=== PATIENT | male | born 1945 | race Caucasian/White ===

== ENCOUNTER 2019-09-25 15:00 | Outpatient (CLI) | payer MEDICARE, OTHER, SELFPAY ==
--- NOTE | ~2019-09-25 | US_ITS ---
EXAMINATION:US venous doppler LE RT INDICATION:Localized leg edema. TECHNIQUE: Multiple grayscale, color flow and Doppler images of the right lower extremity deep venous systems were obtained and reviewed. COMPARISON:01/28/2017 FINDINGS: The common femoral, superficial femoral and popliteal veins demonstrate normal respiratory variation, augmentation and compressibility. Color flow is also seen within the posterior tibial, pe roneal, greater saphenous and profunda veins. IMPRESSION: 1: No lower extremity deep venous thrombosis. Reviewed, dictated and finalized at location A.
== END 2019-09-25 15:01 | disposition home or self-care (01) ==
PROVIDERS: PCP Family Medicine; Visit Provider Physician Assistant
DX: R60.0 Localized edema (principal)
CPT/HCPCS: 93971

== ENCOUNTER 2021-12-19 00:15 | Day surgery (SDC) | payer MEDICARE, OTHER, SELFPAY ==
[2021-11-20 14:46] VITALS: BMI 26.9
--- NOTE | 2021-12-19 07:36 | WPDANESEPPF ---
Anes - Initial Pre Proc Eval Procedure: Operation Date: 12/19/21 12:30 Proposed Procedures p Screening Colonoscopy - Lb Anderson MD Date/Time: 12/19/21 07:36 Surgeon: Lb Anderson MD Pre Op Diagnosis: family hx of colon polyps Patient Data Age: 76 Gender: M Height: 1.91 m Weight: 97.5 kg Allergies Allergy/AdvReac Type Severity Reaction Status Date / Time hydrocodone AdvReac Intermediate EXTREME Verified 12/19/21 11:03 CONFUSION Home Medications Medication Instructions Recorded Confirmed Type aspirin 81 mg tablet,delayed 81 mg PO DAILY 06/04/19 11/20/21 History release multivitamin 1 tablet PO DAILY 09/23/19 11/20/21 History simvastatin 10 mg tablet 10 mg PO DAILY #90 tabs 07/03/21 11/20/21 Rx losartan 25 mg tablet See Rx Instructions .Route 09/26/21 11/20/21 Rx .COMPLEX #90 tabs Patient hx anesthesia problems: none Family hx anesthesia problems: none Results Review: All pre-operative results and documents have been reviewed as part of the pre-operative evaluation. [facility] Past Medical History Medical History (Updated 12/19/21 @ 07:38 by Wilbur Alberts MD) BPH (benign prostatic hyperplasia) DVT (deep venous thrombosis) Essential (primary) hypertension Obstructive sleep apnea (adult) (pediatric) Pure hypercholesterolemia Surgical History Surgical History H/O arthroscopy of knee H/O arthroscopy of shoulder H/O colonoscopy H/O hernia repair History of hip replacement Family History Family History Mother Hypertension Family history of elevated blood lipids Cerebrovascular accident Family history of coronary artery disease Father Family history of emphysema Social History Social History Smoking status: Never smoker Alcohol intake: current Substance use type: does not use Living arrangements: alone Spiritual care concerns: No Anes - Eval Final PreProcedure Day of Procedure 12/19/21 07:36 Patient weight: overweight Heart: regular rate and rhythm Lungs: clear to auscultation and normal air movement Airway: Mallampati scale class II Neurological: alert and oriented Last oral intake: >/= 8 hours ASA classification: II Emergent: no Anesthetic plan: proceed Anesthesia type and monitoring: general GIVS Results Review: All pre-operative results and documents have been reviewed as part of the pre-operative evaluation. Informed Consent: The patient's anesthetic plan and its attendant risks and benefits were discussed with the patient/family/POA. Questions were solicited and answers provided to the satisfaction of the patient/family/POA.
[2021-12-19 11:04] VITALS: BP 153/74; PULSE 55; RESP 18; TEMP 36.4; O2SAT 100
[2021-12-19] MEDS: LACTATED RINGERS 1,000 ML 150 ML IV CONT (11:08)
--- NOTE | 2021-12-19 11:30 | PM.IMHP ---
H&P: HPI History of Present Illness Date/Time: 12/19/21 11:30 Chief Complaint: Neoplasia screening. Narrative: This is a 76-year-old white male patient presents for neoplasia screening. Patient reports that his current weight appetite and bowel movements are normal. He denies abdominal pain. He has had no bleeding. Family history is significant that his brother has had colon polyps. For this reason patient has had intermittent screening colonoscopies. Most recent exam 6 or 7 years ago was unremarkable. Patient presents today for screening exam. Review of Systems Review of Systems: Review of systems noncontributory. [facility] Past Medical History Medical History (Updated 12/19/21 @ 11:32 by Lb Anderson MD) BPH (benign prostatic hyperplasia) DVT (deep venous thrombosis) Essential (primary) hypertension Obstructive sleep apnea (adult) (pediatric) Pure hypercholesterolemia Surgical History Surgical History (Reviewed 10/10/21 @ 09:35 by Kirstin Ramos [facility]) H/O arthroscopy of knee H/O arthroscopy of shoulder H/O colonoscopy H/O hernia repair History of hip replacement Family History Family History (Reviewed 10/10/21 @ 09:35 by Kirstin Ramos [facility]) Mother Hypertension Family history of elevated blood lipids Cerebrovascular accident Family history of coronary artery disease Father Family history of emphysema Social History Social History (Reviewed 10/10/21 @ 09:35 by Kirstin Ramos [facility]) Smoking status: Never smoker Alcohol intake: current Substance use type: does not use Living arrangements: alone Spiritual care concerns: No Meds Home Medications and Allergies Home Medications Medication Instructions Recorded Confirmed Type aspirin 81 mg tablet,delayed 81 mg PO DAILY 06/04/19 11/20/21 History release multivitamin 1 tablet PO DAILY 09/23/19 11/20/21 History simvastatin 10 mg tablet 10 mg PO DAILY #90 tabs 07/03/21 11/20/21 Rx losartan 25 mg tablet See Rx Instructions .Route 09/26/21 11/20/21 Rx .COMPLEX #90 tabs Allergies Allergy/AdvReac Type Severity Reaction Status Date / Time hydrocodone AdvReac Intermediate EXTREME Verified 12/19/21 11:03 CONFUSION Vital Signs Vital Signs - 24 hr 12/19/21 11:04 Temperature 97.5 F L Pulse Rate 55 L Respiratory Rate 18 Blood Pressure 153/74 H Pulse Oximetry 100 Oxygen Delivery Room Air Exam Narrative: Physical exam reveals patient be alert. Vital signs stable. HEENT exam is unremarkable. Patient is anicteric. Lungs are clear to auscultation and percussion. Heart is without murmur or extra sounds. Abdominal exam bowel sounds are present soft nontender with no hepatosplenomegaly. Digital external rectal exam is normal. Assessment and Plan Assessment and plan (1) Family history of colonic polyps: Code(s): Z83.71 - Family history of colonic polyps Status: Acute Assessment and Plan: Patient has a family history of colon polyps in his brother. For this reason surveillance colonoscopy suggested now and at intervals in the future.
[2021-12-19 12:23] VITALS: BP 131/71; PULSE 64; RESP 19; O2SAT 100
[2021-12-19 12:33] VITALS: BP 122/67; PULSE 53; RESP 24; O2SAT 100
[2021-12-19 12:43] VITALS: BP 129/68; PULSE 48; RESP 14; O2SAT 100
== END 2021-12-19 12:50 | disposition home or self-care (01) ==
PROVIDERS: PCP Family Medicine; Visit Provider Internal Medicine Gastroenterology
PROC: 0DJD8ZZ Inspection of Lower Intestinal Tract, Via Natural or Artificial Opening Endoscopic (ICD-10-PCS; CPT 45378; principal; 2021-12-19 12:30)
DX: Z12.11 Encounter for screening for malignant neoplasm of colon (principal); K64.8 Other hemorrhoids; K57.32 Diverticulitis of large intestine without perforation or abscess without bleeding; Z83.71 Family history of colonic polyps; I10 Essential (primary) hypertension; G47.33 Obstructive sleep apnea (adult) (pediatric); E78.00 Pure hypercholesterolemia, unspecified; N40.0 Benign prostatic hyperplasia without lower urinary tract symptoms; Z86.718 Personal history of other venous thrombosis and embolism; Z79.82 Long term (current) use of aspirin
CPT/HCPCS: G0105; J2704; J7120

== ENCOUNTER 2023-01-15 00:13 | Day surgery (SDC) | payer MEDICARE, OTHER, SELFPAY ==
[2023-01-02 14:08] VITALS: BMI 26.3
[2023-01-15 07:33] VITALS: BP 136/68; PULSE 52; RESP 18; TEMP 36.1; O2SAT 98
[2023-01-15] MEDS: LACTATED RINGERS 1,000 ML 150 ML IV CONT (07:44)
--- NOTE | 2023-01-15 08:06 | P.PNAN_ITS ---
Anes - Initial Pre Proc Eval Procedure: Operation Date: 01/15/23 08:45 Proposed Procedures p Esophagogastroduodenoscopy - Lb Anderson MD Date/Time: 01/15/23 08:06 Surgeon: Lb Anderson MD Pre Op Diagnosis: dysphagia Patient Data Age: 77 Gender: M Height: 1.91 m Weight: 95.7 kg Last Vital Signs Temp 36.1 C L 01/15/23 07:33 Pulse 52 L 01/15/23 07:33 Resp 18 01/15/23 07:33 BP 136/68 01/15/23 07:33 Pulse Ox 98 01/15/23 07:33 O2 Del Method Room Air 01/15/23 07:33 Allergies Allergy/AdvReac Type Severity Reaction Status Date / Time hydrocodone AdvReac Intermediate EXTREME Verified 01/15/23 07:30 CONFUSION Home Medications Medication Instructions Recorded Confirmed Type multivitamin 1 tablet PO DAILY 09/23/19 01/02/23 History simvastatin 10 mg tablet 10 mg PO DAILY #90 tabs 08/13/22 01/02/23 Rx glucosamine HCl 1,500 mg tablet 1,500 mg PO DAILY 12/26/22 01/02/23 History ascorbic acid (vitamin C) 500 mg 500 mg PO DAILY 01/02/23 01/02/23 History capsule losartan 25 mg tablet 25 mg PO DAILY 01/02/23 01/02/23 History Patient hx anesthesia problems: none Family hx anesthesia problems: none Results Review: All pre-operative results and documents have been reviewed as part of the pre- operative evaluation. [facility] Past Medical History Medical History BPH (benign prostatic hyperplasia) DVT (deep venous thrombosis) Essential (primary) hypertension Obstructive sleep apnea (adult) (pediatric) Pure hypercholesterolemia Surgical History Surgical History H/O arthroscopy of knee H/O arthroscopy of shoulder H/O colonoscopy H/O hernia repair History of hip replacement Family History Family History Mother Hypertension Family history of elevated blood lipids Cerebrovascular accident Family history of coronary artery disease Father Family history of emphysema Social History Social History Smoking status: Never smoker Alcohol intake: current Alcohol use details: occasional Substance use type: does not use Living arrangements: with family Spiritual care concerns: No Anes - Eval Final PreProcedure Day of Procedure 01/15/23 08:06 Patient weight: normal Heart: regular rate and rhythm Lungs: clear to auscultation Airway: Mallampati scale class II Neurological: alert and oriented Last oral intake: >/= 8 hours ASA classification: III Emergent: no Anesthetic plan: proceed Anesthesia type and monitoring: general GIVS and standard monitoring Results Review: All pre-operative results and documents have been reviewed as part of the pre- operative evaluation. Informed Consent: The patient's anesthetic plan and its attendant risks and benefits were discussed with the patient/family/POA. Questions were solicited and answers provided to the satisfaction of the patient/family/POA.
--- NOTE | 2023-01-15 08:18 | WPDHPUPDATE1 ---
History and Physical Update Update Date/Time: 01/15/23 08:18 History and Physical has been reviewed, including an updated exam of the patient. There are NO changes in the patient's condition. Risks, benefits, and alternatives have been discussed and questions answered. Patient agrees to proceed with procedure.
[2023-01-15 09:17] VITALS: BP 134/77; PULSE 53; RESP 15; O2SAT 100
[2023-01-15 09:27] VITALS: BP 130/75; PULSE 57; RESP 21; O2SAT 97
[2023-01-15 09:37] VITALS: BP 152/71; PULSE 54; RESP 16; O2SAT 96
== END 2023-01-15 09:42 ==
PROVIDERS: PCP Family Medicine; Visit Provider Internal Medicine Gastroenterology
PROC: 0DJ08ZZ Inspection of Upper Intestinal Tract, Via Natural or Artificial Opening Endoscopic (ICD-10-PCS; CPT 43235; principal; 2023-01-15 08:45)
DX: R13.10 Dysphagia, unspecified (principal); I10 Essential (primary) hypertension; E78.00 Pure hypercholesterolemia, unspecified; G47.33 Obstructive sleep apnea (adult) (pediatric); N40.0 Benign prostatic hyperplasia without lower urinary tract symptoms; Z86.718 Personal history of other venous thrombosis and embolism
CPT/HCPCS: 43450; 43235; J2704; J7120

== ENCOUNTER 2023-02-14 08:29 | Outpatient (CLI) | payer MEDICARE, OTHER, SELFPAY ==
--- NOTE | ~2023-02-14 | MR_ITS ---
MRI of the left shoulder Technique: Axial proton-density fat-sat images, coronal proton density fat-sat and T2 fat-sat images, and sagittal T1-weighted and T2 fat-sat images were acquired. Clinical History: Pain Findings: There is severe AC joint degenerative change. Coracoclavicular, coracoacromial, and coracoh umeral ligaments appear intact. There is a full-thickness tear involving the majority of the supraspinatus tendon, especially the felix tral to posterior portions. Fluid-filled gap measures 3.8 x 1.7 cm in extent. Anterior supraspinatus tendon fibers appear intact. Infraspinatus tendon is intact, with mild tendinosis. Subscapularis tend on is intact, with moderate tendinosis. Intra-articular biceps tendon is not clearly seen, the biceps tendon is probably torn and retracted into the proximal bicipital groove. No definite labral tear seen. No significant degenerative change of the glenohumeral joint. Inferior glenohumeral ligament is intac t. There is small to moderate glenohumeral joint effusion with fluid passing through the rotator cuff defect into the subacromial/subdeltoid bursa. No muscle atrophy or edema evident. Impression: Full-thickness tear involving the central and posterior portions of the supraspinatus tendon, as deta iled above. Suspected rupture of the proximal biceps tendon, with retraction into the proximal bicipital groove. Tendinosis of the infraspinatus and subscapularis tendons. Severe AC joint degenerative change. Reviewed, dictated and finalized at location . Impression: Full-thickness tear involving the central and posterior portions of the suprasp inatus tendon, as detailed above. Suspected rupture of the proximal biceps tendon, with retraction into the proxi mal bicipital groove. Tendinosis of the infraspinatus and subscapularis tendons. Severe AC joint degenerative change.
== END 2023-02-14 08:30 | disposition home or self-care (01) ==
PROVIDERS: PCP Family Medicine; Visit Provider Orthopaedic Surgery
DX: S46.812A Strain of other muscles, fascia and tendons at shoulder and upper arm level, left arm, initial encounter (principal); M75.82 Other shoulder lesions, left shoulder; M19.012 Primary osteoarthritis, left shoulder; X58.XXXA Exposure to other specified factors, initial encounter
CPT/HCPCS: 73221

== ENCOUNTER 2023-03-12 08:33 | Outpatient (CLI) | payer MEDICARE, OTHER, SELFPAY ==
--- NOTE | ~2023-03-12 | XR_ITS ---
Supine and upright views of the abdomen Clinical history: Hematuria COMPARISON: 01/09/2017 Findings: Bowel gas pattern is nonspecific. No evidence for obstruction or free air. Possible small r ight renal stones present. Right arthroplasty is in place. There is mild degenerative change of the l eft hip joint. There is degenerative spondylosis of the lumbar spine. Impression: Possible small right renal stones. Reviewed, dictated and finalized at location M. Impression: Possible small right renal stones.
--- NOTE | ~2023-03-12 | CT_ITS ---
CT of the Abdomen and Pelvis: Indication: Gross hematuria Technique: 2.5 mm axial scans were obtained through the abdomen and pelvis prior to and following in travenous administration of 130 cc of Omnipaque 350. Dose reduction technique was used on this scan b y utilizing automated exposure control and iterative reconstruction technique. The dose-length produc t (DLP) was 2088.59 mGy-cm. Findings: Scans through the lung bases demonstrated 8 mm irregular left basilar pulmonary nodule. The liver, spleen, pancreas, gallbladder, and adrenal glands are within normal limits. Bilateral para pelvic renal cysts are present, left greater than right. No stone or hydronephrosis evident. No evide nce of aortic aneurysm. No lymphadenopathy. No bowel obstruction or bowel wall thickening. There is no evidence to suggest acute appendicitis. Images through the pelvis are mildly degraded by streak artifact from right hip arthroplasty. Urinary bladder unremarkable. Prostate gland is probably enlarged, indenting through the bladder base. No as cites. Impression: Probable enlarged prostate gland, indenting through the bladder base. Underlying bladder or prostate neoplasm are difficult to completely exclude based on this exam. Consider cystoscopy as indicated. Parapelvic renal cysts. 8 mm left basilar pulmonary nodule. According to Fleischner Society criteria, for a low-risk patient, recommend 6-12 month follow-up CT, then consider additional 18-[address] For a high-risk patient, follow-up CT scans at both 6-12 months, and at 18-24 months, are recommended. Reviewed, dictated and finalized at [facility]. Impression: Probable enlarged prostate gland, indenting through the bladder base. Underlyin g bladder or prostate neoplasm are difficult to completely exclude based on thi s exam. Consider cystoscopy as indicated. Parapelvic renal cysts. 8 mm left basilar pulmonary nodule. According to Fleischner Society criteria, f or a low-risk patient, recommend 6-12 month follow-up CT, then consider additio nal 18-[address] For a high-risk patient, follow-up CT scans at both 6-12 mo nths, and at 18-24 months, are recommended.
[2023-03-12 09:00] LABS: Estimated Glomerular Filt Rate > 60
== END 2023-03-12 08:34 | disposition home or self-care (01) ==
LOC: ANHIMG 08:34
PROVIDERS: PCP Family Medicine; Visit Provider Nurse Practitioner Adult Health
DX: R31.0 Gross hematuria (principal); N28.1 Cyst of kidney, acquired; R91.1 Solitary pulmonary nodule
CPT/HCPCS: 74018; 74178; Q9967

== ENCOUNTER 2023-03-27 09:42 | Outpatient (CLI) | payer MEDICARE, OTHER, SELFPAY ==
--- NOTE | ~2023-03-27 | CT_ITS ---
EXAMINATION: CT sinus wo con DATE: 03/27/2023 10:03 INDICATION: Nasal congestion, chronic TECHNIQUE: Computed tomography (CT) of the paranasal sinuses was performed without contrast. Iterativ e reconstruction technique was employed. Exam dose: 343.37 mGy-cm total exam DLP. COMPARISON: None FINDINGS: Mild leftward bowing of the nasal septum. There is prominent symmetric soft tissue swelling of the nasal turbinates. The ostiomeatal units are patent bilaterally. The paranasal sinuses and mastoid air cells are normally developed and aerated. Middle and inner ear apparatus appear normal bilaterally. IMPRESSION: Prominent symmetric soft tissue swelling of the nasal turbinates Mild leftward bowing of nasal septum Patent ostiomeatal units, paranasal sinuses and mastoid air cells Reviewed, dictated and finalized at Location A. Reviewed, dictated and finalized at location B.
== END 2023-03-27 09:43 | disposition home or self-care (01) ==
PROVIDERS: PCP Family Medicine; Visit Provider Otolaryngology
DX: R09.81 Nasal congestion (principal); M79.89 Other specified soft tissue disorders; J34.2 Deviated nasal septum
CPT/HCPCS: 70486

== ENCOUNTER 2023-04-02 13:15 | Outpatient (CLI) | payer MEDICARE, OTHER, SELFPAY ==
--- NOTE | 2023-04-02 13:25 | ECG_ITS ---
Measurements Intervals [place] Rate: 63 P: 84 DC: 225 QRS: -55 QRSD: 138 T: 92 QT: 386 QTc: 396 Interpretive Statements SINUS RHYTHM WITH FIRST DEGREE AV BLOCK INTRAVENTRICULAR CONDUCTION DELAY [130+ ms QRS DURATION] LEFT VENTRICULAR HYPERTROPHY AND ST-T CHANGE [VOLTAGE CRITERIA PLUS ST/T ABNORMALITY] LEFT AXIS DEVIATION NO PREVIOUS ECG AVAILABLE FOR COMPARISON Electronically Signed On 04-02-2023 19:58:30 CDT by Loulou Gordon M.D.
== END 2023-04-02 13:16 | disposition home or self-care (01) ==
LOC: ANHSURGERY 13:19
PROVIDERS: PCP Family Medicine; Visit Provider Orthopaedic Surgery
DX: Z01.818 Encounter for other preprocedural examination (principal); I44.0 Atrioventricular block, first degree; R93.1 Abnormal findings on diagnostic imaging of heart and coronary circulation; I10 Essential (primary) hypertension
CPT/HCPCS: 93005

== ENCOUNTER 2023-04-02 13:42 | Outpatient (CLI) | payer MEDICARE, OTHER, SELFPAY ==
--- NOTE | ~2023-04-02 | CT_ITS ---
EXAMINATION:CT diagnostic chest wo con DATE: 04/02/2023 14:27 INDICATION: Pulmonary nodule. TECHNIQUE: Computed tomography (CT) of the chest was performed without intravenous contrast. Automate d exposure control and iterative reconstruction technique were employed. The dose-length product (DLP ) was 154.95 mGy-cm. COMPARISON: CT abdomen and pelvis 03/12/2023 FINDINGS: There is mild atelectasis bilaterally. The left lower lobe pulmonary nodule has resolved. N o pleural effusion. The heart size is normal. There are coronary artery calcifications. No pericardia l effusion. There are peripelvic cysts in left kidney. There is a 4 mm radiopaque foreign body in rig ht anterior chest wall. There are bridging endplate osteophytes at multiple levels in the spine, cons istent with diffuse idiopathic skeletal hyperostosis (DISH). There is mild chronic anterior wedging o f multiple vertebral bodies. IMPRESSION: 1. Interval resolution of the left lower lobe pulmonary nodule. Reviewed, dictated and finalized at location E.
== END 2023-04-02 13:43 | disposition home or self-care (01) ==
PROVIDERS: PCP Family Medicine; Visit Provider Family Medicine
DX: R91.1 Solitary pulmonary nodule (principal)
CPT/HCPCS: 71250; 93005

== ENCOUNTER 2023-04-08 00:33 | Day surgery (SDC) | payer MEDICARE, OTHER, SELFPAY ==
--- NOTE | 2023-04-02 12:50 | PC.NURSE ---
PRE-OP INSTRUCTIONS, PLEASE READ CAREFULLY Report to the Outpatient Waiting Room, entrance under the green pavilion located off [facility], at time _0600_ on date _04/08/23_. Planned Procedure Time: _0730_. Time changes happen often and if your time is changed the preop area will call you the afternoon before. - You and your visitor will be asked to self-screen and do not enter if you have any COVID symptoms. - A mask is optional within the hospital at this time. Patients may have clear liquids (water, carbonated beverages, clear teas, apple juice) until 3 hours prior to surgery (0430 AM) with a maximum of 20 ounces. - No food from midnight until time of surgery Take the following medications with a SIP of water the morning of surgery: _EYE DROPS_ DO NOT STOP ANY OF YOUR OTHER PRESCRIPTION MEDICATIONS PRIOR TO SURGERY ?EXCEPT THE FOLLOWING Medications to discontinue per ANESTHESIA - _MULTIVITAMIN, GLUCOSAMINE 3 DAYS PRIOR TO SURGERY, Date to take last dose 04/04/23_ Please no make-up, nail honduran, hairspray, perfume, deodorant, or body powder the day of surgery. No jewelry (including any body piercings) or valuables the day of surgery, leave them at home. Please take a shower or bath the night before, or the morning of, surgery with an antibacterial soap. Wear comfortable, loose fitting clothing. - Jewelry must be removed prior to entering the operating room. Rings and piercings that are not removed may be cut off. - The hospital will not accept responsibility for valuables. - Please leave all valuables, including medications, at home the day of surgery. If you are going home after surgery, a licensed telephone directory distributor driver must drive you home. - NO public transportation without another adult if you receive anesthesia. - We recommend that an adult stay with you for 24 hours following discharge. - We also recommend that you do not drive, make important decision, drink alcoholic beverages, or take any drugs that were not prescribed by your health care provider for at least 24 hours after your discharge time. Follow any additional instructions given to you from your surgeon. If you or anyone in your household have experienced Covid symptoms in the past week, please notify your surgeon or the nurse liaison at the phone number below for possible testing. Telephone instructions given to _PATIENT_and asked if any additional questions and then verbalized understanding. Patient advised to call surgeon office or pre surgery nurse liaison [phone] if any additional questions.
[2023-04-02 12:53] VITALS: BMI 26.2
[2023-04-08] VITALS (9 sets, daily range): BP systolic 117–171; BP diastolic 57–73; PULSE 54–67; RESP 16–22; TEMP 36.1–36.3; O2SAT 97–100
[2023-04-08] MEDS: LACTATED RINGERS 1,000 ML 30 ML IV CONT ×2 (06:30→09:13)
--- NOTE | 2023-04-08 07:16 | WPDHPUPDATE1 ---
History and Physical Update Update Date/Time: 04/08/23 07:16 History and Physical has been reviewed, including an updated exam of the patient. There are NO changes in the patient's condition. Risks, benefits, and alternatives have been discussed and questions answered. Patient agrees to proceed with procedure.
--- NOTE | 2023-04-08 07:17 | WPDANESEPPF ---
Anes - Initial Pre Proc Eval Procedure: Operation Date: 04/08/23 07:30 Proposed Procedures p Left Rotator Cuff Repair with Distal Clavicle Excision - Yobani Rebollar MD Date/Time: 04/08/23 07:17 Surgeon: Yobani Rebollar MD Pre Op Diagnosis: left rotator cuff tear, ac arthritis Patient Data Age: 77 Gender: M Height: 1.91 m Weight: 95 kg Allergies Allergy/AdvReac Type Severity Reaction Status Date / Time hydrocodone AdvReac Intermediate EXTREME Verified 04/02/23 12:38 CONFUSION Home Medications Medication Instructions Recorded Confirmed Type multivitamin 1 tablet PO DAILY 09/23/19 04/02/23 History simvastatin 10 mg tablet 10 mg PO DAILY #90 tabs 08/13/22 04/02/23 Rx glucosamine HCl 1,500 mg tablet 1,500 mg PO DAILY 12/26/22 04/02/23 History ascorbic acid (vitamin C) 500 mg 500 mg PO DAILY 01/02/23 04/02/23 History capsule losartan 25 mg tablet 25 mg PO DAILY 01/02/23 04/02/23 History fluticasone propionate 50 2 spray intranasal BID 04/02/23 04/02/23 History mcg/actuation nasal spray,suspension ketorolac 0.5 % eye drops 1 drp BID 04/02/23 04/02/23 History Patient hx anesthesia problems: none Family hx anesthesia problems: none Results Review: All pre-operative results and documents have been reviewed as part of the pre-operative evaluation. [facility] Past Medical History Medical History Arthritis of left acromioclavicular joint BPH (benign prostatic hyperplasia) DVT (deep venous thrombosis) Essential (primary) hypertension Obstructive sleep apnea (adult) (pediatric) Pure hypercholesterolemia Tear of left rotator cuff Surgical History Surgical History H/O arthroscopy of knee H/O arthroscopy of shoulder H/O colonoscopy H/O hernia repair History of eye surgery History of hand surgery History of hip replacement History of left knee replacement History of tonsillectomy and adenoidectomy History of uvulectomy Family History Family History Mother Hypertension Family history of elevated blood lipids Cerebrovascular accident Family history of coronary artery disease Diabetes mellitus Father Family history of emphysema Hypertension Social History Social History Social History: Caffeine-soda occasionally, decaf coffee Smoking status: Never smoker Second hand tobacco smoke exposure: No Alcohol intake: current Alcohol use details: 1-2 DRINKS/MONTH Substance use: never Substance use type: does not use Lack of Transportation: No Lack of Food: Never True Current Housing: Decline to Answer Concerned About Future Housing: Decline to Answer Difficulty Paying Gas/Electric Bills: Decline to Answer Difficulty Paying for Meds: Decline to Answer Currently Unemployed: Decline to Answer Education: Decline to Answer Difficulty w/ Childcare or Family Care: Decline to Answer Living arrangements: with family Occupation/Education: retired Spiritual care concerns: No Anes - Eval Final PreProcedure Day of Procedure 04/08/23 07:17 Patient weight: overweight Heart: regular rate and rhythm Lungs: clear to auscultation Airway: Mallampati scale class II Neurological: alert and oriented Last oral intake: >/= 8 hours ASA classification: III Emergent: no Anesthetic plan: proceed Anesthesia type and monitoring: general ETT and standard monitoring Results Review: All pre-operative results and documents have been reviewed as part of the pre-operative evaluation. Informed Consent: The patient's anesthetic plan and its attendant risks and benefits were discussed with the patient/family/POA. Questions were solicited and answers provided to the satisfaction of the patient/family/POA.
[2023-04-08] MEDS: ceFAZolin 2 GM/D5W 50 ML 2 GM/50 ML BAG IVPB (07:37)
[2023-04-08] MEDS: KETOROLAC 15 MG/ML VIAL (*BKC) IV PUSH (07:38)
[2023-04-08] MEDS: ACETAMINOPHEN 500 MG TABLET 1000 MG PO (07:38)
[2023-04-08] MEDS: BUPIVACAINE/EPINEPHRINE 0.5% 10 ML VIAL INFILTRATE (08:25)
--- NOTE | 2023-04-08 08:31 | WPDANESPNB ---
Anes - Peripheral Nerve Block Date/Time: 04/08/23 08:31 I have discussed with the patient/family/POA the placement of a peripheral nerve block for post-operative pain management, including associated risks, benefits, complications, and side effects. Alternative methods of post-operative analgesia were detailed. Questions were solicited and answers provided to the satisfaction of the patient/family/POA. Time-Out: A pre-procedural Time-Out was completed immediately before starting the procedure and confirmed: Patient Identification, Site, Procedure, Patient Position and the Availability of Requisite Equipment. Clinical Indications: Acute post-operative pain management requested by the operative surgeon. Nerve Block Insertion Note Anes-nerve block: interscalene left Patient position: other (sitting) Skin prep: chlorhexidine Needle: 22 gauge, stimulating, insulated echogenic needle. Needle length: 50 mm Technique: nerve stimulation lost at (mA) (0.28) and ultrasound Technique comment: fent 100mcg Injectate: bupivacaine 0.5% with epi 5 mcg/ml (30ml) and dexamethasone (mg) (4) Observations: tolerated well Complications: none Procedure start time:: 727 Procedure end time:: 734
--- NOTE | 2023-04-08 09:06 | P.OP_ITS ---
Procedure Note - Detailed Date of Procedure 04/08/23 Pre-op Diagnosis left rotator cuff tear, ac arthritis Post-op Diagnosis Same Procedure Performed left rotator cuff repair with distal clavicle excision Surgeon Yobani Rebollar MD Pediatric Registered Nurse Neeru Martinez Anesthesia General and Regional Description of Procedure Patient was identified and proper site identified. In the preop holding area the anesthesia team performed a leftupper extremity block. He was then taken to the operating room and transferred to the or table taking care to pad the torso and extremities. After general anesthetic induction and intubation, he was put in a semi beach chair position in the usual manner for a left shoulder procedure. His head was secured taking care to neither rotate nor extend the head and neck. The left upper extremity was prepped and draped free in usual sterile fashion. The subcutaneous tissue in the area of the incision was injected with 10 cc of 0.25% Marcaine and epinephrine solution. An oblique anterior incision was made extending from the AC joint distally in line with the fibers of the deltoid. Subcutaneous tissue was sharply dissected down to the deltoid fascia. The deltoid was dissected off the anterior portion of the acromion in the distal end of the clavicle. A 2 cm split was made at the junction between the anterior and middle thirds of the deltoid. Using the microsagittal saw the last 8 mm of clavicle removed. The saw was also used to perform the acromioplasty and then the undersurface of the acromion was rasped smooth. there is a longitudinal erosive type tear in the super and infraspinatus tendons. This was debrided so was able to be repaired in a [id number] fashion. Tuberosity was prepared for repair and the tendon construct was then reattached to the greater tuberosity through a bony bridge. This gave a chavez repair which was stable as the shoulder was taken through range of motion The wound was irrigated with sterile NaCl solution. The deltoid was repaired back to the acromion with 2. Ethibond suture passed through bone and the remainder of the deltoid repair carried out with 2. Vicryl. Subcutaneous tissue was reapproximated with 2. Strata fix and then tissue adhesive used for the skin. Sterile dressing was applied. There were no known intraoperative complications, and perioperative antibiotics were administered. Estimated Blood Loss 15 Drains No Packing No Pathology None sent Complications No immediate complications Condition Stable Disposition PACU [facility] Billing Surgery - Charge Forward: Surgery Billing ([id number]; [id number])
== END 2023-04-08 11:05 | disposition home or self-care (01) ==
PROVIDERS: PCP Family Medicine; Visit Provider Orthopaedic Surgery
PROC: (CPT 23420; principal; 2023-04-08 07:30)
DX: M75.102 Unspecified rotator cuff tear or rupture of left shoulder, not specified as traumatic (principal); M19.012 Primary osteoarthritis, left shoulder; I10 Essential (primary) hypertension; N40.0 Benign prostatic hyperplasia without lower urinary tract symptoms; Z86.718 Personal history of other venous thrombosis and embolism; G47.33 Obstructive sleep apnea (adult) (pediatric); E78.00 Pure hypercholesterolemia, unspecified; Z82.49 Family history of ischemic heart disease and other diseases of the circulatory system; G89.18 Other acute postprocedural pain
CPT/HCPCS: 64415; 23412; 23120; A4565; A9270; J0330; J0690; J1100; J1885; J2405; J2704; J3010; J7120

== ENCOUNTER 2023-12-03 00:46 | Day surgery (SDC) | payer MEDICARE, SELFPAY ==
--- NOTE | 2023-11-21 14:32 | PC.NURSE ---
Report to the Outpatient Waiting Room, entrance under the green pavilion located off [facility], at time __11:00 AM on date _12/03/23 . Planned Procedure Time: __1:00 PM . Time changes happen often and if your time is changed the preop area will call you the afternoon before. - You and your visitor will be asked to self-screen and do not enter if you have any COVID symptoms. - A mask is optional within the hospital at this time. Patients may have clear liquids (water, carbonated beverages, clear teas, apple juice) until 3 hours prior to surgery ( 10 AM)with a maximum of 20 ounces. - No food from midnight until time of surgery - Infants may have breast milk until 4 hours before surgery, infant formula 6 hours prior to surgery. - Children will be allowed to drink immediately following surgery. If applicable, please bring a bottle or sippy cup to assist with drinking. Juice, water, soda, and popsicles are readily available. For infants on formula, please bring formula the day of surgery. Pacifiers are allowed. Take the following medications with a SIP of water the morning of surgery: ___EYE DROP DO NOT STOP ANY OF YOUR OTHER PRESCRIPTION MEDICATIONS PRIOR TO SURGERY ?EXCEPT THE FOLLOWING Medications to discontinue per physician ALL VITAMINS AND SUPPLEMENTS 3 DAYS PRE OP.LAST DOSE 11/29/23 Please no make-up, nail kinyarwanda, hairspray, perfume, deodorant, or body powder the day of surgery. No jewelry (including any body piercings) or valuables the day of surgery, leave them at home. Please take a shower or bath the night before, or the morning of, surgery with an antibacterial soap. Wear comfortable, loose fitting clothing. Children are encouraged to wear pajamas. - Jewelry must be removed prior to entering the operating room. Rings and piercings that are not removed may be cut off. - The hospital will not accept responsibility for valuables. - Please leave all valuables, including medications, at home the day of surgery. If you are going home after surgery, a licensed local company intermodal truck driver must drive you home. - NO public transportation without another adult if you receive anesthesia. - We recommend that an adult stay with you for 24 hours following discharge. - We also recommend that you do not drive, make important decision, drink alcoholic beverages, or take any drugs that were not prescribed by your health care provider for at least 24 hours after your discharge time. For Pediatric surgeries, we recommend two adults accompany the child home. Follow any additional instructions given to you from your surgeon. If you or anyone in your household have experienced Covid symptoms in the past week, please notify your surgeon or the nurse liaison at the phone number below for possible testing. Telephone instructions given to PATIENT and asked if any additional questions and then verbalized understanding. Patient advised to call surgeon office or pre surgery nurse liaison [phone] if any additional questions.
[2023-11-21 14:39] VITALS: BMI 26.2
--- NOTE | 2023-12-03 07:14 | WPDHPUPDATE1 ---
History and Physical Update Update Date/Time: 12/03/23 07:14 History and Physical has been reviewed, including an updated exam of the patient. He also complains of persistent tenderness at the A1 lachelle with tenosynovitis of the 3rd digit. History of 2 injections in the past with moderate benefit. We discussed the options and agreed to add a right 3rd trigger finger release to today's procedure. Risks, benefits, and alternatives have been discussed and questions answered. Patient agrees to proceed with procedure.
--- NOTE | 2023-12-03 11:28 | ECG_ITS ---
Test Date: 2023-12-03 11:41:50 Measurements Intervals [place] Rate: 57 P: 85 SD: 229 QRS: -55 QRSD: 126 T: 99 QT: 402 QTc: 392 Interpretive Statements SINUS BRADYCARDIA WITH FIRST DEGREE AV BLOCK WITH OCCASIONAL SUPRAVENTRICULAR PREMATURE COMPLEXES POSSIBLE RIGHT VENTRICULAR CONDUCTION DELAY [RSR (QR) IN V1/V2] LEFT ANTERIOR FASCICULAR BLOCK [QRS AXIS <= -45, QR IN I, RS IN II] LEFT VENTRICULAR HYPERTROPHY AND ST-T CHANGE [VOLTAGE CRITERIA PLUS ST/T ABNORMALITY] POSSIBLE ANTEROSEPTAL MYOCARDIAL INFARCTION , OF INDETERMINATE AGE [30 ms Q WAVE IN V1-V4] No previous ECG available for comparison Electronically Signed On 12-03-2023 13:40:17 CDT by Chinedu Aggarwal M.D.
[2023-12-03 11:37] VITALS: BP 141/69; PULSE 49; RESP 16; TEMP 36.9; O2SAT 100
--- NOTE | 2023-12-03 11:54 | WPDANESEPPF ---
Anes - Initial Pre Proc Eval Procedure: Operation Date: 12/03/23 13:30 Proposed Procedures p Right Carpal Tunnel Release - Nader Luciano MD Date/Time: 12/03/23 11:54 Surgeon: Nader Luciano MD Pre Op Diagnosis: Rt Carpal Tunnel Syn Patient Data Age: 77 Gender: M Height: 1.91 m Weight: 94 kg Last Vital Signs Temp 36.9 C 12/03/23 11:37 Pulse 49 L 12/03/23 11:37 Resp 16 12/03/23 11:37 BP 141/69 H 12/03/23 11:37 Pulse Ox 100 12/03/23 11:37 O2 Del Method Room Air 12/03/23 11:37 Allergies Allergy/AdvReac Type Severity Reaction Status Date / Time hydrocodone AdvReac Intermediate EXTREME Verified 12/03/23 11:20 CONFUSION Home Medications Medication Instructions Recorded Confirmed Type multivitamin 1 tablet PO DAILY 09/23/19 12/03/23 History glucosamine HCl 1,500 mg tablet 1,500 mg PO DAILY 12/26/22 12/03/23 History ascorbic acid (vitamin C) 500 mg 500 mg PO DAILY 01/02/23 12/03/23 History capsule losartan 25 mg tablet 25 mg PO HS 01/02/23 12/03/23 History ketorolac 0.5 % eye drops 1 drp RIGHT EYE DAILY 04/02/23 12/03/23 History tramadol 50 mg tablet 50 mg PO Q6H PRN pain #10 tabs 12/03/23 Rx Patient hx anesthesia problems: none Family hx anesthesia problems: none Results Review: All pre-operative results and documents have been reviewed as part of the pre-operative evaluation. [facility] Past Medical History Medical History BPH (benign prostatic hyperplasia) DVT (deep venous thrombosis) Essential (primary) hypertension Obstructive sleep apnea (adult) (pediatric) Pure hypercholesterolemia Surgical History Surgical History Arthritis of left acromioclavicular joint DCE April 08, 2023 during rotator cuff repair H/O arthroscopy of knee H/O arthroscopy of shoulder H/O colonoscopy H/O hernia repair History of eye surgery History of hand surgery History of hip replacement (~2017) History of left knee replacement (~2018) History of tonsillectomy and adenoidectomy History of uvulectomy Tear of left rotator cuff Left rotator cuff repair with DCE April 08, 2023 Family History Family History Mother Hypertension Family history of elevated blood lipids Cerebrovascular accident Family history of coronary artery disease Diabetes mellitus Father Family history of emphysema Hypertension Social History Social History Social History: Caffeine-soda occasionally, decaf coffee Smoking status: Never smoker Second hand tobacco smoke exposure: No Alcohol intake: current Alcohol use details: 1 DRINK PER MONTH Substance use: never Substance use type: does not use Current Housing: Decline to Answer Concerned About Future Housing: Decline to Answer Difficulty Paying Gas/Electric Bills: Decline to Answer Difficulty Paying for Meds: Decline to Answer Currently Unemployed: Decline to Answer Education: Decline to Answer Difficulty w/ Childcare or Family Care: Decline to Answer Living arrangements: with family Occupation/Education: retired Spiritual care concerns: No Anes - Eval Final PreProcedure Day of Procedure 12/03/23 11:54 Patient weight: normal Heart: bradycardia Lungs: clear to auscultation Airway: Mallampati scale class II Neurological: alert and oriented Last oral intake: >/= 8 hours ASA classification: III Emergent: no Anesthetic plan: proceed Anesthesia type and monitoring: general GIVS and standard monitoring Results Review: All pre-operative results and documents have been reviewed as part of the pre-operative evaluation. Informed Consent: The patient's anesthetic plan and its attendant risks and benefits were discussed with the patient/family/POA. Questions were solicited and answ
[2023-12-03] MEDS: LACTATED RINGERS 1,000 ML 30 ML IV CONT ×2 (12:00→13:11)
[2023-12-03] MEDS: ACETAMINOPHEN 500 MG TABLET 1000 MG PO (12:00)
[2023-12-03] MEDS: KETOROLAC 15 MG/ML VIAL (*BKC) IV PUSH (12:00)
[2023-12-03 12:08] VITALS: BP 141/69; PULSE 49; RESP 16; TEMP 36.9; O2SAT 100
[2023-12-03] MEDS: BUPIVACAINE/EPINEPHRINE 0.5% 10 ML VIAL INFILTRATE (13:00)
[2023-12-03 13:11] VITALS: BP 129/61; PULSE 62; RESP 14; O2SAT 100
--- NOTE | 2023-12-03 13:15 | P.OP_ITS ---
Procedure Note - Detailed Date of Procedure 12/03/23 Pre-op Diagnosis Right Carpal Tunnel Syndrome 2. Right 3rd Trigger Finger Post-op Diagnosis Same Procedure Performed Right 1. Carpal tunnel release 2. 3rd Trigger finger release Surgeon Nader Luciano MD Field Technical Support Consultant Vera Houser PA-C Anesthesia General Description of Procedure Operative details. After sedation was administer, the hand was prepped and draped in the usual sterile fashion. The proposed incision was marked using typical anatomic landmarks. 10ML 0.5% Marcaine with epinephrine was injected along the incision lines and at the distal forearm. The limb was exsanguinated and the tourniquet inflated to 250 millimeters of mercury. A longitudinal incision was taken sharply. Dissection was brought down to the transverse carpal ligament. Under direct vision the ligament was incised sharply. The proximal release was carried out with dissection scissors. The contents of the carpal canal were protected with a [place] elevator. The transverse carpal ligament was confirmed to be widely patent. A transverse incision was created over the A1 lachelle. Subcutaneous dissection was carried out bluntly. The A1 lachelle was identified and visualized. It was released with the dissection scissors longitudinally. The tourniquet was released. The wounds were closed with Prolene suture 3-0. A sterile bulky dressing was applied. The patient was brought to the recovery room in stable condition. There were no complications. Assisted by Physician senior office assistant, Vera Houser PA-C; including soft tissue retraction, patient draping, wound closures, splint dressing application. Estimated Blood Loss 5 Pathology None sent Complications No immediate complications Condition Stable Disposition PACU [facility] Billing Surgery - Charge Forward: Surgery Billing
[2023-12-03 13:40] VITALS: BP 149/72; PULSE 49; RESP 18
[2023-12-03 14:10] VITALS: BP 137/69; PULSE 50; RESP 18
== END 2023-12-03 14:17 | disposition home or self-care (01) ==
PROVIDERS: PCP Family Medicine; Visit Provider Orthopaedic Surgery
PROC: (CPT 64721; principal; 2023-12-03 13:30)
DX: G56.01 Carpal tunnel syndrome, right upper limb (principal); M65.331 Trigger finger, right middle finger; I10 Essential (primary) hypertension; E78.00 Pure hypercholesterolemia, unspecified; G47.33 Obstructive sleep apnea (adult) (pediatric)
CPT/HCPCS: 64721; 26055; 93005; A9270; J1885; J2001; J2405; J2704; J3010; J7120

== ENCOUNTER 2024-04-17 12:04 | Outpatient (CLI) | payer MEDICARE, SELFPAY ==
[2024-04-17 13:48] LABS: Basophils Percent Auto 0.6 % (0.2-1.2); Eosinophils Absolute Auto 0.1 K/mm3 (0-0.3); Eosinophils Percent Auto 1.4 % (0-4.4); Hematocrit 44.3 % (42.0-52.0); Hemoglobin 14.7 g/dL (14.0-18.0); Immature Granulocyte Absolute 0.02 K/mm3 (0.00-0.031); Immature Granulocyte Percent A 0.3 % (0-0.5); Lymphocytes Absolute Auto 1.77 K/mm3 (0.9-3.2); Mean Corpuscular HGB Conc 33.2 g/dl (32-36); Mean Corpuscular Volume 99.3 fl (80-100); Monocytes Absolute Auto 0.6 K/mm3 (0.1-0.6); Monocytes Percent Auto 9.3 % (2.6-8.5); Neutrophils Absolute Auto 3.8 K/mm3 (1.3-6.7); Neutrophils Percent Auto 60.4 % (45.5-73.1); Platelet Count Result 176 k/mm3 (150-375); Red Blood Count 4.46 M/mm3 (4.6-6.20); Red Cell Distribution Width 12.2 % (11.5-14.5); White Blood Count 6.3 K/mm3 (4.5-10.0)
[2024-04-17 13:57] LABS: Albumin Level 4.4 g/dL (3.5-5.1); Estimated Glomerular Filt Rate > 60; Glucose 85 mg/dL (65-110)
[2024-04-17 14:14] LABS: Hemoglobin A1C 5.8 % (<5.7)
[2024-04-17 14:18] LABS: Urine Cotinine NEGATIVE
[2024-04-17 15:07] LABS: MRSA (PCR) NOT DETECTED (NOT DETECTE)
== END 2024-04-17 12:05 | disposition home or self-care (01) ==
PROVIDERS: PCP Family Medicine; Visit Provider Orthopaedic Surgery
DX: Z01.812 Encounter for preprocedural laboratory examination (principal); M16.12 Unilateral primary osteoarthritis, left hip
CPT/HCPCS: 80307; 82040; 82565; 82947; 83036; 85025; 87641

== ENCOUNTER 2024-05-12 01:37 | Day surgery (SDC) | payer MEDICARE, SELFPAY ==
[2024-04-17 12:24] VITALS: BP 128/68; PULSE 51; RESP 16; TEMP 36.6; O2SAT 100; BMI 26.1
--- NOTE | 2024-04-17 12:43 | PC.NURSE ---
Report to the Outpatient Waiting Room, entrance under the green pavilion located off [facility], at time __6:00AM___ on date ___05/12/24___. Planned Procedure Time: _7:30AM____.? Time changes happen often and if your time is changed the preop area will call you the afternoon before. - You and your visitor will be asked to self-screen and do not enter if you have any COVID symptoms. Please call surgeon if you need to reschedule. - A mask is optional within the hospital at this time. Patients may have clear liquids (water, carbonated beverages, clear teas, apple juice) until 3 hours prior to surgery with a maximum of 20 ounces. - No food from midnight until time of surgery and no smoking. Take only the following medications with a SIP of water on the morning of surgery: NONE DO NOT STOP ANY OF YOUR OTHER PRESCRIPTION MEDICATIONS PRIOR TO SURGERY EXCEPT THE FOLLOWING Medications to discontinue per physician __HOLD ALEVE(NSAIDS) 7 DAYS PRE-OP PER DR NAVARRO- LAST DOSE 05/04/24._ HOLD ALL VITAMINS/SUPPLEMENTS 3 DAYS PRE-OP - LAST DOSE 05/08/24. Please no make-up, nail ghanaian, hairspray, perfume, deodorant, or body powder the day of surgery.? No jewelry (including any body piercings) or valuables the day of surgery, leave them at home.? Please take a shower or bath the night before, or the morning of, surgery with an antibacterial soap.? Wear comfortable, loose fitting clothing.? - Jewelry must be removed prior to entering the operating room.? Rings and piercings that are not removed may be cut off. - The hospital will not accept responsibility for valuables.? - Please leave all valuables, including medications, at home the day of surgery. If you are going home after surgery, a licensed tractor driver must drive you home.? - NO public transportation without another adult if you receive anesthesia. - We recommend that an adult stay with you for 24 hours following discharge. - We also recommend that you do not drive, make important decision, drink alcoholic beverages, or take any drugs that were not prescribed by your health care provider for at least 24 hours after your discharge time. Follow any additional instructions given to you from your surgeon. Telephone instructions given to ____PATIENT and asked if any additional questions and then verbalized understanding. Patient advised to call surgeon office or pre surgery nurse liaison [phone] if any additional questions.
--- NOTE | 2024-05-11 13:02 | P.PNAN_ITS ---
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 Patient Data Age: 78 Gender: M Height: 1.91 m Weight: 94.9 kg Last Vital Signs Temp 97.9 F 04/17/24 12:24 Pulse 51 L 04/17/24 12:24 Resp 16 04/17/24 12:24 BP 128/68 04/17/24 12:24 Pulse Ox 100 04/17/24 12:24 O2 Del Method Room Air 04/17/24 12:24 Allergies Allergy/AdvReac Type Severity Reaction Status Date / Time hydrocodone AdvReac Intermediate EXTREME Verified 05/04/24 10:55 CONFUSION Home Medications Medication Instructions Recorded Confirmed Type multivitamin 1 tablet PO DAILY 09/23/19 05/04/24 History glucosamine HCl 1,500 mg tablet 1,500 mg PO DAILY 12/26/22 05/04/24 History ascorbic acid (vitamin C) 500 mg 500 mg PO DAILY 01/02/23 05/04/24 History capsule losartan 25 mg tablet 25 mg PO HS 01/02/23 05/04/24 History ketorolac 0.5 % eye drops 1 drp RIGHT EYE DAILY 04/02/23 05/04/24 History naproxen sodium 220 mg capsule 440 mg PO BID PRN Pain 04/17/24 05/04/24 History (Aleve) rivaroxaban 10 mg tablet (Xarelto) 10 mg PO DAILY 1 month #30 tabs 05/04/24 05/04/24 Rx ECG: SINUS BRADYCARDIA WITH FIRST DEGREE AV BLOCK WITH OCCASIONAL SUPRAVENTRICULAR PREMATURE COMPLEXES POSSIBLE RIGHT VENTRICULAR CONDUCTION DELAY [RSR (QR) IN V1/V2] LEFT ANTERIOR FASCICULAR BLOCK [QRS AXIS <= -45, QR IN I, RS IN II] LEFT VENTRICULAR HYPERTROPHY AND ST-T CHANGE [VOLTAGE CRITERIA PLUS ST/T ABNORMALITY] POSSIBLE ANTEROSEPTAL MYOCARDIAL INFARCTION , OF INDETERMINATE AGE [30 ms Q WAVE IN V1-V4] VR57 Patient hx anesthesia problems: none Family hx anesthesia problems: none Results Review: All pre-operative results and documents have been reviewed as part of the pre- operative evaluation. [facility] Past Medical History Medical History BPH (benign prostatic hyperplasia) DVT (deep venous thrombosis) Dysphagia Essential (primary) hypertension Obstructive sleep apnea (adult) (pediatric) Overweight Prediabetes Pure hypercholesterolemia Restless legs syndrome Venous insufficiency of right leg Surgical History Surgical History Arthritis of left acromioclavicular joint DCE April 08, 2023 during rotator cuff repair H/O arthroscopy of knee H/O arthroscopy of shoulder H/O colonoscopy H/O hernia repair History of eye surgery History of hand surgery History of hip replacement (~2017) History of left knee replacement (~2018) History of tonsillectomy and adenoidectomy History of uvulectomy S/P trigger finger release (~12/03/23) Right middle finger Status post carpal tunnel release (~12/03/23) Right wrist Tear of left rotator cuff Left rotator cuff repair with DCE April 08, 2023 Family History Family History Mother Hypertension Family history of elevated blood lipids Cerebrovascular accident Family history of coronary artery disease Diabetes mellitus Father Family history of emphysema Hypertension Social History Social History Social History: Caffeine-soda occasionally, decaf coffee Smoking status: Never smoker Second hand tobacco smoke exposure: No Alcohol intake: current Alcohol use details: 1 DRINK PER MONTH Substance use: never Substance use type: does not use Current Housing: Decline to Answer Concerned About Future Housing: Decline to Answer Difficulty Paying Gas/Electric Bills: Decline to Answer Difficulty Paying for Meds: Decline to Answer Currently Unemployed: Decline to Answer Education: Decline to Answer Difficulty w/ Childcare or Family Care: Decline to Answer Living arrangements: with family Additional living arrangements comments: Occupation/Education: retired Spiritual care concerns: No Exam Day of Procedure 05/11/24 13:02 Patient weight: overweight
[2024-05-12] VITALS (16 sets, daily range): BP systolic 121–163; BP diastolic 49–82; PULSE 60–93; RESP 12–20; TEMP 36.2–37.1; O2SAT 98–100
--- NOTE | ~2024-05-12 | XR_ITS ---
EXAMINATION: XR hip LT min 2V DATE: 05/12/2024 09:52 INDICATION: Postoperative evaluation following left total hip arthroplasty TECHNIQUE: Anteroposterior and lateral views of the left hip were obtained. COMPARISON: 02/24/2024 FINDINGS: Interval placement of a left total hip arthroplasty which appears well seated in near anatomic alignm ent. Expected soft tissue gas in the postoperative bed. No fractures identified. The right total hip arthroplasty is partially visualized on the crosstable lateral projection. Mild osteoarthritis at th e left sacroiliac joint. Prominent L5-S1 endplate osteophytes. IMPRESSION: 1. Left total hip arthroplasty, negative for postoperative purposes. Reviewed, dictated and finalized at location A. LINE INTEGRITY ENGINEER
[2024-05-12] MEDS: LACTATED RINGERS 1,000 ML 30 ML IV CONT ×2 (06:50→09:32)
[2024-05-12] MEDS: ACETAMINOPHEN 500 MG TABLET 1000 MG PO (07:00)
[2024-05-12] MEDS: TRANEXAMIC ACID 1,000MG/ISO100 1,000 MG/100 ML BAG 200 MG IVPB (07:00)
--- NOTE | 2024-05-12 07:10 | P.PNAN_ITS ---
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 Patient Data Age: 78 Gender: M Height: 1.91 m Weight: 94.9 kg Last Vital Signs Temp 97.9 F 04/17/24 12:24 Pulse 51 L 04/17/24 12:24 Resp 16 04/17/24 12:24 BP 128/68 04/17/24 12:24 Pulse Ox 100 04/17/24 12:24 O2 Del Method Room Air 04/17/24 12:24 Allergies Allergy/AdvReac Type Severity Reaction Status Date / Time hydrocodone AdvReac Intermediate EXTREME Verified 05/04/24 10:55 CONFUSION Home Medications Medication Instructions Recorded Confirmed Type multivitamin 1 tablet PO DAILY 09/23/19 05/04/24 History glucosamine HCl 1,500 mg tablet 1,500 mg PO DAILY 12/26/22 05/04/24 History ascorbic acid (vitamin C) 500 mg 500 mg PO DAILY 01/02/23 05/04/24 History capsule losartan 25 mg tablet 25 mg PO HS 01/02/23 05/04/24 History ketorolac 0.5 % eye drops 1 drp RIGHT EYE DAILY 04/02/23 05/04/24 History naproxen sodium 220 mg capsule 440 mg PO BID PRN Pain 04/17/24 05/04/24 History (Aleve) rivaroxaban 10 mg tablet (Xarelto) 10 mg PO DAILY 1 month #30 tabs 05/04/24 05/04/24 Rx Patient hx anesthesia problems: none Family hx anesthesia problems: none Results Review: All pre-operative results and documents have been reviewed as part of the pre- operative evaluation. [facility] Past Medical History Medical History BPH (benign prostatic hyperplasia) DVT (deep venous thrombosis) Dysphagia Essential (primary) hypertension Obstructive sleep apnea (adult) (pediatric) Overweight Prediabetes Pure hypercholesterolemia Restless legs syndrome Venous insufficiency of right leg Surgical History Surgical History Arthritis of left acromioclavicular joint DCE April 08, 2023 during rotator cuff repair H/O arthroscopy of knee H/O arthroscopy of shoulder H/O colonoscopy H/O hernia repair History of eye surgery History of hand surgery History of hip replacement (~2017) History of left knee replacement (~2018) History of tonsillectomy and adenoidectomy History of uvulectomy S/P trigger finger release (~12/03/23) Right middle finger Status post carpal tunnel release (~12/03/23) Right wrist Tear of left rotator cuff Left rotator cuff repair with DCE April 08, 2023 Family History Family History Mother Hypertension Family history of elevated blood lipids Cerebrovascular accident Family history of coronary artery disease Diabetes mellitus Father Family history of emphysema Hypertension Social History Social History Social History: Caffeine-soda occasionally, decaf coffee Smoking status: Never smoker Second hand tobacco smoke exposure: No Alcohol intake: current Alcohol use details: 1 DRINK PER MONTH Substance use: never Substance use type: does not use Current Housing: Decline to Answer Concerned About Future Housing: Decline to Answer Difficulty Paying Gas/Electric Bills: Decline to Answer Difficulty Paying for Meds: Decline to Answer Currently Unemployed: Decline to Answer Education: Decline to Answer Difficulty w/ Childcare or Family Care: Decline to Answer Living arrangements: with family Additional living arrangements comments: Occupation/Education: retired Spiritual care concerns: No Anes - Eval Final PreProcedure Day of Procedure 05/12/24 07:10 Patient weight: normal Heart: regular rate and rhythm Lungs: clear to auscultation Airway: Mallampati scale class II Neurological: alert and oriented Last oral intake: >/= 8 hours ASA classification: III Emergent: no Anesthetic plan: proceed Anesthesia type and monitoring: general ETT and standard monitoring Results Review: All pre-operative results and documents have been reviewed as part of the pre- operative evaluation. HTN, NICOLASA on CPAP, cleared by PCP prior to this sx. Informed Consent: The patient's anesthetic plan and its attendant risks and benefits were discussed with the patient/family/POA. Questions were solicited and answers provided to the satisfaction of the patient/family/POA.
--- NOTE | 2024-05-12 07:17 | WPDHPUPDATE1 ---
History and Physical Update Update Date/Time: 05/12/24 07:17 History and Physical has been reviewed, including an updated exam of the patient. There are NO changes in the patient's condition. Risks, benefits, and alternatives have been discussed and questions answered. Patient agrees to proceed with procedure.
[2024-05-12] MEDS: ceFAZolin 2 GM/D5W 50 ML 2 GM/50 ML BAG IVPB ×2 (07:29→16:29)
[2024-05-12] MEDS: SODIUM CHLORIDE 0.9% IV 38.7 ML, ROPivacaine HCL 1% 200 MG, KETOROLAC INJ (*BKC) 15 MG,... INFILTRATE (08:05)
[2024-05-12] MEDS: TRANEXAMIC ACID 1,000 MG/10 ML AMPUL 1000 MG IV PUSH (08:53)
--- NOTE | 2024-05-12 09:15 | P.OP_ITS ---
Procedure Note - Detailed Date of Procedure 05/12/24 Pre-op Diagnosis Left hip degenerative arthritis. Post-op Diagnosis Same Procedure Performed Left Total Hip Arthroplasty Surgeon Nader Luciano MD [employer] Vera Houser PA-C Anesthesia General Findings Tall stature. Excellent bone quality. Description of Procedure The patient was given preoperative antibiotics. A general anesthetic was administered. The patient was carefully placed in the lateral decubitus position on the PEG board. The shoulders and hips were carefully positioned for component and leg length positioning reference. The hip was prepped and draped in the usual sterile fashion. A longitudinal incision was created over the posterior aspect of the greater trochanter. Careful dissection was brought down through the deep fascia with electrocautery. A minimally invasive optimized posterior approach to the hip was performed. The short external rotators and capsule were taken down in an L-shaped capsulotomy. The tissue was tagged for later repair using number 2 high strength suture. The femoral neck was measured and taken in situ. The femoral head was removed. The acetabulum was carefully exposed. The inferior capsule was released. The labrum was resected. The acetabulum was sequentially reamed to one over the intended cup size. The cup was impacted into position with excellent press-fit. Typical anatomic landmarks, including the bony contact points as well as the inferior transverse acetabular ligament were used to confirm cup positioning with preoperative templating. Attention was turned to the femur, which was carefully exposed. The hip was reamed and then broached sequentially. Excellent press-fit was obtained with the broach. The hip was trialed. Measurements were utilized, including the lesser trochanter as well as the center of the femoral head and the tip of the trochanter, and excellent assessment of the offset and leg lengths were confirmed. The real component was impacted into position. Trialing confirmed appropriate leg length and offset with soft tissue balancing as well apparent feel of the leg, both at the knee and the heel. Soft tissues were assessed using the the iliotibial band. Reduction of the posterior capsule and external rotators were also used as a secondary assessment. The hip was copiously irrigated with pulsatile lavage periodically throughout the procedure. The real components were then assembled and reduced. The hip was stable throughout typical maneuvers, including extension, external rotation to 70 degrees, the position of sleep as well as flexion to 90 degrees with internal rotation past 35 degrees. The shake test confirmed stability without impingement. Osteophytes were removed as necessary. The short external rotators and capsule were repaired back to the posterior trochanter through drill holes. The deep fascia was repaired with running number 2 barbed suture, followed by 2-0 Stratafix suture and 3-0 Stratafix suture in the dermis. Steri-Strips were p laced on the skin, followed by a sterile occlusive dressing. There were no complications. Meticulous hemostasis was maintained with the AquaMantys device. The patient was brought to the recovery room in stable condition. There were no complications. Physician patient care assistant, Vera Houser PA-C, required for surgery; including patient positioning, draping, tissue retraction, maintaining instrument position, hip dislocation/ relocation, wound closure, and dressing placement. Implants The Accolade II hip stem, 132 degree size 8 , was utilized with excellent press-fit. The 56 mm Trident II acetabular component was impacted with excellent press-fit stability. Standard polyethylene liner the +2.5, 36 mm Biolox ceramic femoral head was utilized. Estimated Blood Loss 300 Drains No Packing No Pathology None sent Complications No immediate complications Condition Stable Disposition PACU [facility] Billing Surgery - Charge Forward: Surgery Billing
[2024-05-12] MEDS: fentaNYL CITRATE INJ (*CRX) 100 MCG/2 ML VIAL 25 MCG IV PUSH (10:07)
--- NOTE | 2024-05-12 11:15 | ADMGEN ---
This patient, Chilango Melvin, was admitted to [facility] Surg Room 309-01. Patient/family oriented to hospital policies and general routines including ID bracelet, bed and alarms, visiting hours, pain management, procedures, bathroom and other care routines, personal items, smoking policy, room service/diet, and visiting hours. Information on how to activate the Rapid Response Team has been discussed. Patient/Family are encouraged to report perceived risks to care and to ask questions if they do not understand what they are told or what they should do.
[2024-05-12] MEDS: ACETAMINOPHEN 325 MG TABLET 650 MG PO ×2 (13:38→18:18)
[2024-05-12] MEDS: SENNA/DOCUSATE SODIUM TABLET 2 TAB PO (16:36)
[2024-05-12] MEDS: FAMOTIDINE 20 MG TABLET PO (21:50)
[2024-05-12] MEDS: LOSARTAN POTASSIUM 25 MG TABLET PO (21:50)
[2024-05-13] MEDS: ceFAZolin 2 GM/D5W 50 ML 2 GM/50 ML BAG IVPB (00:16)
[2024-05-13] MEDS: ACETAMINOPHEN 325 MG TABLET 650 MG PO ×2 (00:22→08:46)
[2024-05-13 00:39] VITALS: BP 135/61; PULSE 60; RESP 20; TEMP 36.3; O2SAT 99
[2024-05-13 05:55] VITALS: BP 131/66; PULSE 76; RESP 18; TEMP 37.5; O2SAT 98
[2024-05-13 07:17] LABS: Basophils Percent Auto 0.2 % (0.2-1.2); Eosinophils Percent Auto 0.3 % (0-4.4); Hematocrit 42.6 % (42.0-52.0); Hemoglobin 14.1 g/dL (14.0-18.0); Immature Granulocyte Absolute 0.02 K/mm3 (0.00-0.031); Immature Granulocyte Percent A 0.2 % (0-0.5); Lymphocytes Absolute Auto 1.25 K/mm3 (0.9-3.2); Lymphocytes Percent Auto 12.9 % (18.3-44.2); Mean Corpuscular HGB Conc 33.1 g/dl (32-36); Mean Corpuscular Hemoglobin 32.9 pg (26-34); Mean Corpuscular Volume 99.5 fl (80-100); Mean Platelet Volume 11.5 fl (7.4-10.4); Monocytes Absolute Auto 1.3 K/mm3 (0.1-0.6); Monocytes Percent Auto 13.8 % (2.6-8.5); Neutrophils Percent Auto 72.6 % (45.5-73.1); Platelet Count Result 151 k/mm3 (150-375); Red Blood Count 4.28 M/mm3 (4.6-6.20); White Blood Count 9.7 K/mm3 (4.5-10.0)
[2024-05-13 07:34] LABS: Anion Gap 2 mmol/L (4-12); Blood Urea Nitrogen 17 mg/dL (9-20); Calcium 8.8 mg/dL (8.4-10.2); Carbon Dioxide 31 mmol/L (22-30); Chloride 103 mmol/L (98-107); Estimated CRCL calculation 80 ml/min; Estimated Glomerular Filt Rate > 60; Glucose 112 mg/dL (65-110); Potassium 3.7 mmol/L (3.4-5.0); Sodium 136 mmol/L (137-145)
[2024-05-13 08:02] VITALS: O2SAT 97
[2024-05-13 08:39] VITALS: BP 123/55; PULSE 82; RESP 16; TEMP 36.7; O2SAT 98
[2024-05-13] MEDS: RIVAROXABAN 10 MG TABLET PO (08:46)
[2024-05-13] MEDS: FAMOTIDINE 20 MG TABLET PO (08:46)
[2024-05-13] MEDS: polyethylene glycoL 3350 17 GM POWD.PACK PO (08:46)
[2024-05-13] MEDS: SENNA/DOCUSATE SODIUM TABLET 2 TAB PO (08:46)
[2024-05-13] MEDS: KETOROLAC 0.5% OP SOLN 5 ML BOTTLE 1 DROP RIGHT EYE (08:47)
[2024-05-13] MEDS: traMADol HCL (*CRX) 50 MG TABLET PO (08:51)
--- NOTE | 2024-05-13 09:54 | PM.DS ---
DS: Admitting Diagnosis Discharge Date 05/13/24 Admitting Diagnosis Hip arthritis. DS: Discharge Diagnosis Discharge Diagnosis (1) Status post total hip replacement, right: Code(s): Z96.641 - Presence of right artificial hip joint Status: Acute Assessment and Plan: Postop day 1:Right Total hip arthroplasty. Patient tolerated procedure well. No complications. Pain manageable with pain medication. No numbness or tingling. We had a lengthy discussion regarding postoperative wound care, limitations, expectations, and exercises. Patient shows good understanding. Patient has had initial physical therapy and is tolerating it well. DVT prophylaxis: Xarelto 30 days. History of blood clot post contralateral total hip. Compression socks. Short frequent walks. Pain medication: Percocet. Patient has followup appointment with Dr. Luciano in 3 weeks DS: Summary Hospital Course Reason for hospitalization: Total hip arthroplasty Hospital Course: Patient tolerated procedure well. Has had initial PT/OT and made good progress. Status at Discharge Functional status at discharge: uses cane/walker Overall status at discharge: patient is progressing back to baseline Time Spent with Patient Time attestation: Total time spent providing and/or coordinating discharge services: Exam Narrative: Normal weight 78 y/o male. Resting comfortably in bed. Wearing compression socks bilaterally. Dressing dry and intact with no drainage. Mild swelling. No ecchymosis. No erythema. No hematoma. Range of motion limited due to pain. Calf nontender. Thigh nontender. Neurologic status intact. No varicosities. Distal pulses palpable. DS: Data Data Completed and Pending Labs on day of discharge: Labs from last 24 hours 05/13/24 06:13 WBC 9.7 RBC 4.28 L Hgb 14.1 Hct 42.6 MCV 99.5 MCH 32.9 MCHC 33.1 RDW 12.0 Plt Count 151 MPV 11.5 H Immature Gran % (Auto) 0.2 Neut % (Auto) 72.6 Lymph % (Auto) 12.9 L [place] % (Auto) 13.8 H Eos % (Auto) 0.3 Baso % (Auto) 0.2 Lymph # (Auto) 1.25 [place] # (Auto) 1.3 H Eos # (Auto) 0.0 Baso # (Auto) 0.0 Abs Immat Gran (auto) 0.02 Absolute Neuts (auto) 7.0 H Absolute Nucleated RBC 0.000 Nucleated RBC % 0.0 Sodium 136 L Potassium 3.7 Chloride 103 Carbon Dioxide 31 H Anion Gap 2 L BUN 17 Creatinine 0.80 Estim Creat Clear Calc 80 Estimated GFR > 60 Glucose 112 H Calcium 8.8 Discharge Plan Discharge Patient Disposition: Home, Self-Care Discharge Instructions: See green instruction sheets Patient Instructions: Pain Management (GEN) Stand Alone Forms: General Discharge Instructions Follow-up/Referrals: Vera Houser PA [Physician Director Of Student Financial Services] - Discharge Medications: New oxycodone-acetaminophen 5-325 mg tablet 1 - 2 tablet PO Q4-6H PRN (Reason: pain) 7 Days Qty: 30 0RF Continued multivitamin Tablet 1 tablet PO DAILY glucosamine HCl 1,500 mg tablet 1,500 mg PO DAILY Rx Instructions: administer with a meal Xarelto 10 mg tablet 10 mg PO DAILY 30 Days Qty: 30 0RF Rx Instructions: Take for 30 days AFTER surgery. Surgery 05/12/24. History of blood clot after his contralateral total hip. ascorbic acid (vitamin C) 500 mg Capsule 500 mg PO DAILY losartan 25 mg tablet 25 mg PO HS Rx Instructions: TAKE 1 TABLET BY MOUTH EVERY DAY ketorolac 0.5 % drops 1 drp RIGHT EYE DAILY Held naproxen sodium [Aleve] 220 mg Capsule 440 mg PO BID PRN (Reason: Pain) Hold Instructions: Resume on 06/09/24. Hold while on Xarelto.
--- NOTE | 2024-05-13 13:29 | WPDANESPN ---
Anes - Prog Note Post-Op Date/Time: 05/13/24 13:29 Cardiovascular status: normal Respiratory status: normal Airway patency: baseline Mental status: baseline Post-Op hydration status: normal Vital Signs: Last Vital Signs Temp 98.1 F 05/13/24 08:39 Pulse 82 05/13/24 08:39 Resp 16 05/13/24 08:39 BP 123/55 L 05/13/24 08:39 Pulse Ox 98 05/13/24 08:39 O2 Del Method Room Air 05/13/24 08:02 O2 Flow Rate 8 05/12/24 09:45 Pain Score (VAS): 0/10 I/O: Intake & Output 05/12/24 05/13/24 05/13/24 23:59 07:59 15:59 Intake Total 840 300 518 Output Total 600 1350 350 Balance 240 -1050 168 Laboratory Tests 05/13/24 06:13 05/13/24 06:13 05/13/24 06:13 WBC 9.7 RBC 4.28 L Hgb 14.1 Hct 42.6 MCV 99.5 MCH 32.9 MCHC 33.1 RDW 12.0 Plt Count 151 MPV 11.5 H Immature Gran % (Auto) 0.2 Neut % (Auto) 72.6 Lymph % (Auto) 12.9 L [place] % (Auto) 13.8 H Eos % (Auto) 0.3 Baso % (Auto) 0.2 Lymph # (Auto) 1.25 [place] # (Auto) 1.3 H Eos # (Auto) 0.0 Baso # (Auto) 0.0 Abs Immat Gran (auto) 0.02 Absolute Neuts (auto) 7.0 H Absolute Nucleated RBC 0.000 Nucleated RBC % 0.0 Sodium 136 L Potassium 3.7 Chloride 103 Carbon Dioxide 31 H Anion Gap 2 L BUN 17 Creatinine 0.80 Estim Creat Clear Calc 80 Estimated GFR > 60 Glucose 112 H Calcium 8.8 Post-procedural complaints: none Patient Feedback: Patient satisfied with anesthetic care.
== END 2024-05-13 11:45 | disposition home or self-care (01) ==
LOC: ANHSURGERY 10:01 → ANH3MEDSUR 10:57
PROVIDERS: Physician Assistant Surgical; PCP Family Medicine; Visit Provider Orthopaedic Surgery
PROC: (CPT 27130; principal; 2024-05-12 07:30)
DX: M16.12 Unilateral primary osteoarthritis, left hip (principal); M25.752 Osteophyte, left hip; R73.03 Prediabetes; G25.81 Restless legs syndrome; I10 Essential (primary) hypertension; E78.00 Pure hypercholesterolemia, unspecified; G47.33 Obstructive sleep apnea (adult) (pediatric); N40.0 Benign prostatic hyperplasia without lower urinary tract symptoms; M19.012 Primary osteoarthritis, left shoulder; Z79.1 Long term (current) use of non-steroidal anti-inflammatories (NSAID); Z79.01 Long term (current) use of anticoagulants; Z98.890 Other specified postprocedural states; Z96.641 Presence of right artificial hip joint; Z86.718 Personal history of other venous thrombosis and embolism; Z82.49 Family history of ischemic heart disease and other diseases of the circulatory system
CPT/HCPCS: 27130; 36415; 73502; 80048; 85025; 86850; 86900; 86901; 97110; 97116; 97161; 97165; 97530; 97535; A9270; C1713; C1776; J0171; J0690; J1100; J1171; J1885; J2003; J2405; J2704; J2795; J3010; J7120

== ENCOUNTER 2024-09-16 09:00 | Outpatient (CLI) | payer MEDICARE, SELFPAY ==
--- OUTSIDE RECORDS SUMMARY | 2024-09-16 09:47 | XMS_ITS | Encounter Summary ---
Author Organization [facility] Address [address] [place] [address] Care Team Providers Care Street Light Repairer Helper Name Role Phone None, Provider Primary Care Provider Joe Rae MD Primary Care Provider [phone] Encounter Details Date Type Department Care Team (Late st Contact Info) Description 11/11/2015 Abstract H CONVERSION [address] [place] [address] , Generic ConversionMD Social History Tobacco Use Types Packs/Day Years Used Date Smoking Tobacco: Never Assessed Sex and Gender Information Value Date Recorded Sex Assigned at Not on file Legal Sex Male 6:09 PM CDT Gender Identity Not on file Sexual Orientation Not on file documented as of this encounter Plan of Treatment Upcoming Encounters Date Type Department Care Team (Late st Contact Info) Description 06/09/2025 10:00 AM SHEET METAL TECHNICIAN Office Visit [facility] - [address] [place] [address] Chico Rodriguez MD [address] [place] [address] [address] [place] [address] documented as of this encounter Visit Diagnoses Not on filedocumented in this encounter Care Teams Street Light Repairer Helper Relationship Specialty Start Date End Date None, Provider, PCP - General 05/19/20 11/05/22 [place] [place] [id number] PCP - General INTERNAL MEDICINE 11/06/22 documented as of this encounter
--- OUTSIDE RECORDS SUMMARY | 2024-09-16 09:47 | XMS_ITS | Referral Summary ---
Author Organization [facility] [address] Address [address] [place] [address] Care Team Providers Care Meals On Wheels Driver Name Role Phone Joe Flannery MD Primary Care Provider [phone] Encounters Date Type Department Care Team Description 06/26/2024 Orders Only [facility] Health Information Management [address] [place] [address] Scanning, Provider from Last 3 Months Allergies Active Allergy Reactions Criticality Noted Date Comments Atorvastatin Nausea & Vomiting,Na usea And Vomiting Low 06/07/2013 Hydrocodone Unknown 06/25/2019 [place] goofy [place] goofy Oxycodone Unknown 02/05/2020 Medications GLUCOSAMINE/CHO NDRO COLVIN A/C/MN (GLUCOSAMINE-CH ONDROIT-VIT C-MN ORAL) Take 1,500 mg by mouth daily. Active ascorbic acid, vitamin C, (VITAMIN C) 500 mg capsule, extended release CR capsule Take 1 capsule (500 mg total) by mouth daily Active [id number] -Lmfolate-algal 27 mg iron-1.13 mg-581.92 mg capsule Take by mouth Active ketorolac (ACULAR) 0.5 % ophthalmic solution INSTILL 1 DROP INTO RIGHT EYE TWICE A DAY 01/11/2023 Active losartan (COZAAR) 25 mg tablet TAKE 1 TABLET (25 MG TOTAL) BY MOUTH DAILY. 90 tablet 3 03/19/2024 Active rOPINIRole (REQUIP) 0.25 mg tablet Take 1 tablet (0.25 mg total) by mouth nightly 30 tablet 1 07/23/2024 Active Active Problems Problem Noted Date Diagnosed Date RLS (restless legs syndrome) 04/28/2024 Assessment & Plan (04/28/2024 9:06 AM STORM WINDOW INSTALLER): INtroduce therapy with ropinirole and will follow repsonse. MOntior response. Contusion of right thumb without damage to nail 04/28/2024 Assessment & Plan (04/28/2024 9:06 AM STORM WINDOW INSTALLER): Check imaging. Evidence of associated triggering of the fiinger. Hypertension, essential 04/28/2024 Assessment & Plan (04/28/2024 9:07 AM STORM WINDOW INSTALLER): Stable on lsoartan 25mg daily and will follow response. Medicare annual wellness visit, subsequent 04/28 Assessment & Plan (04/28/2024 9:07 AM STORM WINDOW INSTALLER): Focus of exam is prevnetative in nature. Reviewed immunziations, reviewd sun/skin cancer screenign. Reviewed colon/prostate cancer screening . Congratualte on active, helathy lifesytle. Pre-operative clearance 03/08/2024 Impacted cerumen of right ear 01/25/2022 Pulsatile tinnitus of right ear 01/25/2022 Nasal obstruction 01/25/2022 Acquired trigger finger 02/05/2020 Degeneration of intervertebral disc 02/05/2020 Knee pain 02/05/2020 Low back pain 02/05/2020 Osteoarthritis 02/05/2020 Osteoarthritis of hip 02/05/2020 Assessment & Plan (04/28/2024 9:05 AM STORM WINDOW INSTALLER): Upcoming joint replacement with Dr. Valdivia next month. Peripheral enthesopathy 02/05/2020 Primary localized osteoarthritis of pelvic regio n and thigh 02/05/2020 Radiotherapy follow-up 02/05/2020 Environmental and seasonal allergies 11/16/2019 Excessive daytime sleepiness 11/16/2019 NICOLASA on CPAP 11/16/2019 Assessment & Plan (04/28/2024 9:05 AM STORM WINDOW INSTALLER): Continues to benefit from nightly therapy. NO adverse effects related to CPAP. VTE (venous thromboembolism) 11/16/2019 Not at risk for difficult ai rway on preoperative anesthesia assessment 12/19/2016 Abnormal EKG 11/27/2013 Impaired fasting glucose 11/27/2013 Hyperlipidemia 06/18/2013 Chest pain 06/07/2013 Overview (02/05/2020): 06/08/13-Transferred from OSH after he presented with intermittent CP for 2 days and EKG showed LBBB with no prior EKGs to compare. Patient chest pain free since admission. Troponin x3 negative. Review of EKG shows intraventricular conduction delay of left bundle type. Given abnormal EKG findings, he had a lexiscan stress test 06/08, which was abnormal. He subsequently went to cardiac cath. Cath showed mild CAD but nonobstructive. Cath also showed inferoapical hypokinesis with EF 65%. The patient has ruled-out for acute OK and had false positive stress test. Etiology of chest pain noncardiac but may have been 2/2 GERD vs. musculoskeletal. Given area of hypokinesis, will discharge the patient on cozar 25mg daily. He will resume his home zocor and ASA 81mg. Follow-up with Dr. Perez scheduled on 06/23/13. The patient remains chest pain free, even at discharge. 06/08/13-Transferred from OSH after he presented with intermittent CP for 2 days and EKG showed LBBB with no prior EKGs to compare. Patient chest pain free since admission. Troponin x3 negative. Review of EKG shows intraventricular conduction delay of left bundle type. Given abnormal EKG findings, he had a lexiscan stress test 06/08, which was abnormal. He subsequently went to cardiac cath. Cath showed mild CAD but nonobstructive. Cath also showed inferoapical hypokinesis with EF 65%. The patient has ruled-out for acute OK and had false positive stress test. Etiology of chest pain noncardiac but may have been 2/2 GERD vs. musculoskeletal. Given area of hypokinesis, will discharge the patient on cozar 25mg daily. He will resume his home zocor and ASA 81mg. Follow-up with Dr. Perez scheduled on 06/23/13. The patient remains chest pain free, even at discharge. Other seborrheic keratosis 10/12/2011 Immunizations Immunization Administration Dates Next Due Influenza, Quadrivalent, Hig h Dose, Preservative Free, Intrr 03/16/2019 Influenza, Trivalent, Adjuva nted, Intramuscular 03/16/2019 Influenza, Trivalent, High D ose, Split, Preservative Free, Intramuscular 03/03/2018 Influenza, Unspecified 04/28/2024(Deferr ed: Patient Refused),03/03/2024(Deferred: Patient Refused),06/10/2023(Deferred: Patient Refused),03/05/2023(Deferred: Patient Refused),06/10/2022(Deferred: Patient Refused),06/10/2021(Deferred: Patient Refused),03/16/2019,03/03/2018 Tdap 08/01/2016 ZOSTER Recombinant 10/28/2018,07/07/2018 Social History Tobacco Use Types Packs/Day Years Used Date Smoking Tobacco: Never Smokeless Tobacco: Never Tobacco Cessation:Counseling Given: Not Answered Alcohol Use Standard Drinks/Week Comments Yes 0 (1 standard drink = 0.6 oz pur e alcohol) occassionally [facility] Utilities Answer Date Recorded In the past 12 months has e [employer], gas, oil, or water idemama threatened to shut off services in your home? No 08/13/2024 Overall Financial Resource Strain (CARDIA) Answe r Date Recorded How hard is it for you to pa y for the very basics like food, housing, medical care, and heating? Not hard at all 08/13/2024 PHQ-2 Answer Date Recorded PHQ-2 Total Score (If total score is 3 or more points, staff should administer the PHQ-9) 0 04/28/2024 Hunger Vital Sign Answer Date Recorded Within the past 12 months, y ou worried that your food would run out before you got the money to buy more. Never true 08/14/19 25 Within the past 12 months, t he food you bought just didn't last and you didn't have money to get more. Never true 08/13/2024 PRAPARE - Transportation Answer Date Re corded In the past 12 months, has l ack of transportation kept you from medical appointments or from getting medications? No 11/2024 In the past 12 months, has l ack of transportation kept you from meetings, work, or from getting things needed for daily living? No 08/13/2024 Housing Stability Vital Sign Answer Ludin e Recorded In the last 12 months, was t here a time when you were not able to pay the mortgage or rent on time? No 08/13/2024 In the past 12 months, how m any times have you moved where you were living? 0 08/13/2024 At any time in the past 12 m [facility], were you homeless or living in a fdc (including now)? No 08/13/2024 Sex and Gender Information Value Date Recorded Sex Assigned at Not on file Legal Sex Male 11:45 PM STORM WINDOW INSTALLER Gender Identity Not on file Sexual Orientation Not on file Last Filed Vital Signs Vital Sign Reading Time Taken Comments Blood Pressure 124/76 04/28/2024 8:23 AM STORM WINDOW INSTALLER Pulse 64 04/28/2024 8:23 AM STORM WINDOW INSTALLER Temperature 36.7 C (98.1 F) 04/28/2024 8:23 AM STORM WINDOW INSTALLER Respiratory Rate 18 01/25/2022 9:09 AM CDT Oxygen Saturation 98% 04/28/2024 8:23 AM STORM WINDOW INSTALLER Inhaled Oxygen Concentration - - Weight 96 kg (211 lb 9.6 oz) 04/28/2024 8:23 AM STORM WINDOW INSTALLER Height 190.5 cm (6' 3 ) 04/28/2024 8:23 AM STORM WINDOW INSTALLER Body Mass Index 26.45 04/28/2024 8:23 AM STORM WINDOW INSTALLER Plan of Treatment Not on file Procedures Procedure Name Priority Date/Time Associated Diagnosis Comments SCAN - RADIOLOGY/IMAGING 06/26/2024 from Last 3 Months Results * SCAN - RADIOLOGY/IMAGING (06/26/2024) Anatomical Region Laterality Modality Other us Provider Scanning Final Result from Last 3 Months Insurance [employer]ET[employer] MEDICARE GOLD AETNA MEDICARE [facility] AETNA MEDICARE [facility] Care Teams Meals On Wheels Driver Relationship Specialty Start Date End Date [place] [address] PCP - General Family Medicine 10/30/22
--- OUTSIDE RECORDS SUMMARY | 2024-09-16 09:47 | XMS_ITS | Clinical Summary ---
Author Organization [facility] Address [address] [place] [phone] Phone Care Team Providers Care Manager Print Name Role Phone Anuj Cowart MD Primary Care Provider [phone] Allergies Active Allergy Reactions Criticality Noted Date Comments Atorvastatin Nausea and Vomiting Low 06/07/2013 Hydrocodone Unknown 06/25/2019 [place] goofy [place] goofy [place] goofy Medications simvastatin (ZOCOR) 20 mg tablet Take 20 mg by mouth Daily LATE. Active aspirin (ULICES CHEWABLE) 81 mg Tablet, Chewable Take 81 mg by mouth daily. Active losartan (COZAAR) 25 mg tablet Take 1 Tab by mouth daily. 90 Tab 1 4 Active ANTIOX#10/OM3/DHA /EPA/LUT/ZEAX (I-CAPS ORAL) Take 1 Tab by mouth daily. Active Bilberry 100 mg Capsule Take 1 Cap by mouth daily. Active Ascorbic Acid (VITAMIN C) 500 mg Capsule, Sustained Release Take 1 Cap by mouth daily. Active Bee Pollen 500 mg Tablet Take 1 Tab by mouth daily. Active GLUCOSAMINE/CHOND ROITIN SULF A (GLUCOSAMINE-STEFANY DROITIN ORAL) Take 2 Tabs by mouth daily. Active [id number]-fhca-U mfolate-algal 27 mg iron-1.13 mg-581.92 mg Capsule Take by mouth. Active ketorolac tromethamine (ACULAR) 0.5 % solution INSTILL 1 DROP INTO RIGHT EYE TWICE A DAY 3 Active Active Problems Patient Care Coordination No te Formatting of this note migh t be different from the original. Rose Grading Supervisor - Dr. Chilango Perez Problem Noted Date Diagnosed Date Impaired fasting glucose 11/27/2013 Abnormal EKG 11/27/2013 Hyperlipidemia 06/18/2013 Chest pain 06/07/2013 Overview (06/08/2013): 06/08/13-Transferred from OSH after he presented with [...] 65%. The patient has ruled-out for acute OH and had false positive stress test. Etiology of chest pain noncardiac but may have been 2/2 GERD vs. musculoskeletal. Given area of hypokinesis, will discharge the patient on cozar 25mg daily. He will resume his home zocor and ASA 81mg. Follow-up with Dr. Perez scheduled on 06/23/13. The patient remains chest pain free, even at discharge. Resolved Problems Problem Noted Date Diagnosed Date Resolved Date LBBB (left bundle branch block) 06/18/2013 11/27/2013 Encounters Date Type Department Care Team Description 08/26/2024 External Device Data STL ABSTRACTION Provider, Abstract 08/15/2024 External Device Data STL ABSTRACTION Provider, Abstract 08/14/2024 External Device Data STL ABSTRACTION Provider, Abstract 07/28/2024 External Device Data STL ABSTRACTION Provider, Abstract 07/01/2024 External Device Data STL ABSTRACTION Provider, Abstract 06/30/2024 External Device Data STL ABSTRACTION Provider, Abstract from Last 3 Months Family History Medical History Relation Name Comments Asthma Daughter Heart Disease Father Hypertension Father Diabetes Mother Other Mother Stroke Mother Relation Name Status Comments Brother Alive Daughter Alive Father Mother Social History Tobacco Use Types Packs/Day Years Used Date Smoking Tobacco: Never Smokeless Tobacco: Never Tobacco Cessation:Counseling Given: Not Answered Alcohol Use Standard Drinks/Week Comments Yes 0 (1 standard drink = 0.6 oz pur e alcohol) Sex and Gender Information Value Date Recorded Sex Assigned at Not on file Legal Sex Male 10:05 PM STUDY ASSISTANT Gender Identity Not on file Sexual Orientation Not on file Last Filed Vital Signs Vital Sign Reading Time Taken Comments Blood Pressure 156/70 11/14/2023 9:46 AM CDT Pulse 68 11/14/2023 9:46 AM CDT Temperature 36.6 C (97.9 F) 11/14/2023 9:46 AM CDT Respiratory Rate 16 11/14/2023 9:46 AM CDT Oxygen Saturation 98% 06/08/2013 2:30 PM STUDY ASSISTANT Inhaled Oxygen Concentration - - Weight 96.4 kg (212 lb 8 oz) 11/14/2023 9:46 AM CDT Height 190.5 cm (6' 3 ) 11/14/2023 9:46 AM CDT Body Mass Index 26.56 11/14/2023 9:46 AM CDT Plan of Treatment Health Maintenance Due Date Last Done Comments PNEUMOCOCCAL VACCINE 50+ YEA RS (1 of 1 - PCV) 1996 RSV VACCINE (60+ or ) (1 - 1-dose 75+ series) 2021 INFLUENZA VACCINE (#1) 2024 9, 03/16/2019, 03/16/2019, Additional history exists DTAP/TDAP/TD VACCINES (2 - T d or Tdap) 08/01/2026 08/01/2016 ZOSTER VACCINE Completed 10/28/2018, 07/07/2018 [facility] Address: [facility] [id number] [phone] Advance Directives For more information, please contact: [phone] * Full Code (Latest Code Status on File) Date Activated Date Inactivated Comments 06/07/2013 12:21 AM 06/08/2013 6:35 PM Care Teams Manager Print Relationship Specialty Start Date End Date Anuj Cowart MD [address] [place] [phone] PCP - General Family Practice 06/18/13
--- OUTSIDE RECORDS SUMMARY | 2024-09-16 09:47 | XMS_ITS | Encounter Summary ---
Author Organization [facility] Address [address] [facility] [place] [address] Care Team Providers Care Securities Compliance Examiner Name Role Phone Anuj Cowart MD Primary Care Provider [phone] Encounter Details Date Type Department Care Team (Late st Contact Info) Description 12/20/[address] [facility] - DermPath Lab [address] [facility] [place] [id number] Sonny Torres MD [address] [place] [address] Social History Tobacco Use Types Packs/Day Years Used Date Smoking Tobacco: Never Smokeless Tobacco: Never Alcohol Use Standard Drinks/Week Comments Yes 0 (1 standard drink = 0.6 oz pur e alcohol) Sex and Gender Information Value Date Recorded Sex Assigned at Not on file Gender Identity Not on file Sexual Orientation Not on file documented as of this encounter Plan of Treatment Not on file documented as of this encounter Procedures Procedure Name Priority Date/Time Associated Diagnosis Comments DERMATOPATHOLOGY Routine 12/18/2022 12:0 0 AM CDT documented in this encounter Results * DERMATOPATHOLOGY (12/18/2022 12:00 AM CDT) Case Report Dermatopathology Report Case: [id number] Authorizing Provider: Sonny Torres MD Collected: 12/18/2022 12:00 AM Ordering Location: [facility] DermPath Lab Received: 12/20/2022 07:20 AM Pathologist: Myra Arellano MD Specimen: Skin, left chest 07/14/202 3 3:20 PM CDT DERMATOPATHOLOGY LABORATORY Final Diagnosis Specimen A. 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 The specimen consists of a shave biopsy measuring 8x6x3 mm. Jar 0. 3 3:20 PM CDT DERMATOPATHOLOGY LABORATORY Microscopic Description Specimen A. SKIN, left chest: In the dermis there is a well-circumscribed collection of small as well as larger, thin- and thick-walled vessels. 3 3:20 PM CDT DERMATOPATHOLOGY LABORATORY Disclaimer An external and internal positive and negative controls are appropriate for the histochemical, immunohistochemical and immunofluorescence stain(s) in this case (if any), except where stated explicitly. The performance characteristics of the stain(s) cited in this report were developed and its performance characteristic determined by the Dermatopathology Laboratory at [facility], directed by Dr. Aron Mcleod. These tests need not be, and therefore are not, approved by the [place] Food and Drug Administration. The tests are used for clinical purposes. Billing Codes Specimen Charges Stain Charges 29058 1 3 3:20 PM CDT DERMATOPATHOLOGY LABORATORY Embedded Images 3 3:20 PM CDT DERMATOPATHOLOGY LABORATORY Pathology/Cytolog y TISSUE SPECIMEN FROM SKIN / Unknown 12/18/2022 12/20/2022 7:20 AM CDT Sonny Torres MD LAB - PATHOLOGY/CYTO LOGY ORDERABLES DERMATOPATHOLOGY LABORATORY [facility] - Department of Dermatology [address], [address] [phone] documented in this encounter Visit Diagnoses Not on filedocumented in this encounter Care Teams Securities Compliance Examiner Relationship Specialty Start Date End Date Anuj Cowart MD [address] [place] [phone] PCP - General 04/12/10 documented as of this encounter
--- OUTSIDE RECORDS SUMMARY | 2024-09-16 09:47 | XMS_ITS | Clinical Summary ---
Author Organization [facility] [address] Address [address] [place] [address] Care Team Providers Care Bridge Expert Name Role Phone Joe Flannery MD Primary Care Provider [phone] Allergies Active Allergy Reactions Criticality Noted Date Comments Atorvastatin Nausea & Vomiting,Na usea And Vomiting Low 06/07/2013 Hydrocodone Unknown 06/25/2019 [place] goofy [place] goofy Oxycodone Unknown 02/05/2020 Medications GLUCOSAMINE/CHO NDRO COLVIN A/C/MN (GLUCOSAMINE-CH ONDROIT-VIT C-MN ORAL) Take 1,500 mg by mouth daily. Active ascorbic acid, vitamin C, (VITAMIN C) 500 mg capsule, extended release CR capsule Take 1 capsule (500 mg total) by mouth daily Active [id number]-opoh -Lmfolate-algal 27 mg iron-1.13 mg-581.92 mg capsule [...] 04/28/2024 Assessment & Plan (04/28/2024 9:06 AM RADIOLOGY RESIDENT): INtroduce therapy with ropinirole and will follow repsonse. Ibrahimior response. Contusion of right thumb without damage to nail 04/28/2024 Assessment & Plan (04/28/2024 9:06 AM RADIOLOGY RESIDENT): Check imaging. Evidence of associated triggering of the fiinger. Hypertension, essential 04/28/2024 Assessment & Plan (04/28/2024 9:07 AM RADIOLOGY RESIDENT): Stable on lsoartan 25mg daily and will follow response. Medicare annual wellness visit, subsequent 04/28 Assessment & Plan (04/28/2024 9:07 AM RADIOLOGY RESIDENT): Focus of exam is prevnetative in nature. [...] 02/05/2020 Assessment & Plan (04/28/2024 9:05 AM RADIOLOGY RESIDENT): Upcoming joint replacement with Dr. Valdivia next month. Peripheral enthesopathy 02/05/2020 Primary localized osteoarthritis of pelvic regio n and thigh 02/05/2020 Radiotherapy follow-up 02/05/2020 Environmental and seasonal allergies 11/16/2019 Excessive daytime sleepiness 11/16/2019 NICOLASA on CPAP 11/16/2019 Assessment & Plan (04/28/2024 9:05 AM RADIOLOGY RESIDENT): Continues to benefit from nightly therapy. NO [...] 65%. The patient has ruled-out for acute SC and had false positive stress test. Etiology [...] 65%. The patient has ruled-out for acute SC and had false positive stress test. Etiology of chest pain noncardiac but may have been 2/2 GERD vs. musculoskeletal. Given area of hypokinesis, will discharge the patient on cozar 25mg daily. He will resume his home zocor and ASA 81mg. Follow-up with Dr. Perez scheduled on 06/23/13. The patient remains chest pain free, even at discharge. Other seborrheic keratosis 10/12/2011 Encounters Date Type Department Care Team Description 06/26/2024 Orders Only [facility] Health Information Management [address] [place] [id number] Scanning, Provider from Last 3 Months Immunizations Immunization Administration Dates Next Due Influenza, Quadrivalent, Hig h Dose, Preservative Free, Intrr 03/16/2019 Influenza, Trivalent, Adjuva nted, Intramuscular 03/16/2019 Influenza, Trivalent, High D ose, Split, Preservative Free, Intramuscular 03/03/2018 Influenza, Unspecified 04/28/2024(Deferr ed: Patient Refused),03/03/2024(Deferred: Patient Refused),06/10/2023(Deferred: Patient Refused),03/05/2023(Deferred: Patient Refused),06/10/2022(Deferred: Patient Refused),06/10/2021(Deferred: Patient Refused),03/16/2019,03/03/2018 Tdap 08/01/2016 ZOSTER Recombinant 10/28/2018,07/07/2018 Surgical History Surgery Date Site/Laterality Comments HERNIA REPAIR KNEE ARTHROSCOPY Left RETINA SURGERY TOTAL HIP ARTHROPLASTY PROSTATE SURGERY FINGER SURGERY PALATE / UVULA BIOPSY / EXCISION Medical History Medical History Date Comments Hypertension Hyperlipidemia Sleep apnea Allergic rhinitis Cataracts, bilateral Tinnitus Family History Medical History Relation Name Comments Emphysema Father Heart attack Father Aneurysm Mother Stroke Mother Relation Name Status Comments Father Mother Social History Tobacco Use Types Packs/Day Years Used Date Smoking Tobacco: Never Smokeless Tobacco: Never Tobacco Cessation:Counseling Given: Not Answered Alcohol Use Standard Drinks/Week Comments Yes 0 (1 standard drink = 0.6 oz pur e alcohol) occassionally [place] Utilities Answer Date Recorded In the past 12 months has th e electric, gas, oil, or water company threatened to shut off services in your [...] time in the past 12 m [facility], were you homeless or living in a assisted (including now)? No 08/13/2024 Sex and Gender Information Value Date Recorded Sex Assigned at Not on file Legal Sex Male 11:45 PM RADIOLOGY RESIDENT Gender Identity Not on file Sexual Orientation Not on file Obstetrics History Last Filed Vital Signs Vital Sign Reading Time Taken Comments Blood Pressure 124/76 04/28/2024 8:23 AM RADIOLOGY RESIDENT Pulse 64 04/28/2024 8:23 AM RADIOLOGY RESIDENT Temperature 36.7 C (98.1 F) 04/28/2024 8:23 AM RADIOLOGY RESIDENT Respiratory Rate 18 01/25/2022 9:09 AM CDT Oxygen Saturation 98% 04/28/2024 8:23 AM RADIOLOGY RESIDENT Inhaled Oxygen Concentration - - Weight 96 kg (211 lb 9.6 oz) 04/28/2024 8:23 AM RADIOLOGY RESIDENT Height 190.5 cm (6' 3 ) 04/28/2024 8:23 AM RADIOLOGY RESIDENT Body Mass Index 26.45 04/28/2024 8:23 AM RADIOLOGY RESIDENT Plan of Treatment Health Maintenance Due Date Last Done Comments Hepatitis B Screening 1963 Pneumococcal vaccine 65+ (1 of 1 - PCV) 1996 Influenza Vaccine (#1) 2024 9, 03/16/2019, 03/16/2019, Additional history exists Depression Screening 04/28/2025 04/28/2024, 03/03/2024, 12/31/2023, Additional history exists Fall Risk Assessment 04/28/2025 04/28/2024, 03/03/2024, 10/15/2023, Additional history exists Well Visit 65+ 04/28/2025 04/28/2024 DTaP/Tdap/Td Vaccine (2 - Td or Tdap) 08/01/2026 08/01/2016 Hepatitis C Screening Completed 09/08/2016 Zoster Vaccine Completed 10/28/2018, 07/07/2018 Procedures Procedure Name Priority Date/Time Associated Diagnosis Comments SCAN - RADIOLOGY/IMAGING 06/26/2024 from Last 3 Months Results * SCAN - RADIOLOGY/IMAGING (06/26/2024) Anatomical Region Laterality Modality Other us Provider Scanning Final Result from Last 3 Months Insurance [facility] MEDICARE [place] AETNA MEDICARE GOLD AETNA MEDICARE GOLD Care Teams Bridge Expert Relationship Specialty Start Date End Date Joe Flannery MD [address] [place] [address] PCP - General Family Medicine 10/30/22
--- OUTSIDE RECORDS SUMMARY | 2024-09-16 09:47 | XMS_ITS | Clinical Summary ---
Author Organization [facility] Address [address] [place] [address] Care Team Providers Care Utility Locate Technician Name Role Phone Joe Flannery MD Primary Care Provider [phone] Allergies Active Allergy Reactions Criticality Noted Date Comments Hydrocodone Unknown 06/25/2019 [place] goofy Medications losartan 25 MG tablet 9 Active simvastatin 10 MG tablet 0 Active aspirin EC 81 MG tablet Take 1 tablet (81 mg total) by mouth daily. Active Ascorbic Acid (VITAMIN C) 100 MG tablet Take 1 tablet (100 mg total) by mouth daily. Active sildenafil 100 MG tablet TAKE 1 TABLET BY MOUTH ONCE DAILY NEEDED FOR SEXUAL ACTIVITY. ADMINISTER 30 MINUTES TO 4 HOURS BEFORE ACTIVITY 0 Active Prenat w/lI-FmBjy-Ewcn f-Omegas (NEEVO DHA) 27-1.13 MG Cap Take by mouth Active Active Problems Problem Noted Date Diagnosed Date NICOLASA on CPAP 11/16/2019 Environmental and seasonal allergies 11/16/2019 Excessive daytime sleepiness 11/16/2019 VTE (venous thromboembolism) 11/16/2019 Abnormal EKG 11/27/2013 Impaired fasting glucose 11/27/2013 Hyperlipidemia 06/18/2013 Chest pain 06/07/2013 Overview (11/16/2019): 06/08/13-Transferred from OSH after he presented with [...] 65%. The patient has ruled-out for acute MS and had false positive stress test. Etiology of chest pain noncardiac but may have been 2/2 GERD vs. musculoskeletal. Given area of hypokinesis, will discharge the patient on cozar 25mg daily. He will resume his home zocor and ASA 81mg. Follow-up with Dr. Perez scheduled on 06/23/13. The patient remains chest pain free, even at discharge. Actinic keratosis 10/11/2012 Other seborrheic keratosis 10/12/2011 Resolved Problems Problem Noted Date Diagnosed Date Resolved Date Not at risk for difficult ai rway on preoperative anesthesia assessment 12/19/201602/18 Immunizations Name Administration Dates Next Due Fluad influenza vaccine, Osbaldo drivalent (aIIV4), Inactivated, adjuvanted, preservative free, 0.5 mL,IM use 03/16/2019 Fluzone High Dose - >Age 65 (Prefilled Syringe) 03/03/2018 Influenza (Generic) 03/16/2019,03/03/2018 Shingrix 10/28/2018,07/07/2018 Tdap (Generic) 08/01/2016 Family History Medical History Relation Comments Heart Attack Father Hypertension Father Aneurysm Mother Diabetes Mother Stroke Mother Relation Status Comments Father Mother Social History Tobacco Use Types Packs/Day Years Used Date Smoking Tobacco: Never Smokeless Tobacco: Never Tobacco Cessation:Counseling Given: Yes Alcohol Use Standard Drinks/Week Comments Not Currently 0 (1 standard drink = 0.6 oz pur e alcohol) AUDIT-C Answer Date Recorded Frequency of Alcohol Consumption Monthly or less 11/16/2019 Average Number of Drinks Not on file 020 Frequency of Binge Drinking Not on file 01/2020 PHQ-2 Answer Date Recorded Patient Health Questionnaire-2 Score 0 11/08/2022 Sex and Gender Information Value Date Recorded Sex Assigned at Not on file Legal Sex Male 6:09 PM CDT Gender Identity Not on file Sexual Orientation Not on file Last Filed Vital Signs Vital Sign Reading Time Taken Comments Blood Pressure 126/69 06/09/2024 9:38 AM PROBATION WORKER Pulse 69 06/09/2024 9:38 AM PROBATION WORKER Temperature 36.6 C (97.8 F) 05/31/2023 8:55 PM PROBATION WORKER Respiratory Rate 16 06/09/2024 9:38 AM PROBATION WORKER Oxygen Saturation 98% 06/09/2024 9:38 AM PROBATION WORKER ra Inhaled Oxygen Concentration - - Weight 98 kg (216 lb) 06/09/2024 9:38 AM PROBATION WORKER Height 190.5 cm (6' 3 ) 06/09/2024 9:38 AM PROBATION WORKER Body Mass Index 27 06/09/2024 9:38 AM PROBATION WORKER Plan of Treatment Upcoming Encounters Date Type Department Care Team (Late st Contact Info) Description 06/09/2025 10:00 AM PROBATION WORKER Office Visit [facility] Multispecialty [facility] - [facility] [address] [place] [address] Chico Rodriguez MD 3rd [facility] [address] [place] [address] Health Maintenance Due Date Last Done Comments Hepatitis C 1963 Annual Medicare Wellness Visit 12/17/2011 Pneumococcal Vaccine: 65+ Years (1 of 1 - PCV) 12/17/2011 RSV Immunization or 60+ Years (1 - 1-dose 75+ series) 2021 COVID-19 Vaccine (1 - 2023-2 5 season) 2024 PHQ-2 (Physician [place]) 06/10/2024 11/08/2022 DTaP, Tdap and Td Vaccines ( 2 - Td or Tdap) 08/01/2026 08/01/2016 Zoster Vaccines Completed 10/28/2018, 07/07/2018 Meningococcal B Vaccine Aged Out No l onger eligible based on patient's age to complete this topic Meningococcal Vaccine Aged Out No christelle charito eligible based on patient's age to complete this topic RSV Immunizations Under 20 Months Aged Out No longer eligible b ased on patient's age to complete this topic Insurance [employer] Care Teams Utility Locate Technician Relationship Specialty Start Date End Date Joe Flannery MD [address] [place] [address] PCP - General INTERNAL MEDICINE 11/06/22
--- OUTSIDE RECORDS SUMMARY | 2024-09-16 09:47 | XMS_ITS | Clinical Summary ---
Author Organization [facility] Address [address] [place] [address] Care Team Providers Care Lease Administrator Name Role Phone Anuj Cowart MD Primary Care Provider [phone] Source Comments [facility],non-[facility] Affiliates and Associated Physician Practices is amultiple site organization consisting of ambulatory clinics and hospital sitesin [place], [place], [place] and [place]. This disclosure is being madepursuant to the Care Everywhere program and may not contain all information available regarding this patient. Last updated 18.[facility] Allergies Active Allergy Reactions Criticality Noted Date Comments No Known Drug Allergy 10/05/2011 Active Problems Problem Noted Date Diagnosed Date Actinic keratosis 10/11/2012 Other seborrheic keratosis 10/12/2011 Family History Medical History Relation Name Comments Cancer Maternal Grandmother CVA Mother Allergy (Severe) Neg Hx Cancer - Breast Neg Hx Cancer - Skin, Melanoma Neg Hx Cancer - Skin, Non Melanoma Neg Hx Eczema Neg Hx Hemophilia Neg Hx Psoriasis Neg Hx Rashes/Skin Problems Neg Hx Relation Name Status Comments Maternal Grandmother Mother Social History Tobacco Use Types Packs/Day Years Used Date Smoking Tobacco: Never Smokeless Tobacco: Never Alcohol Use Standard Drinks/Week Comments Yes 0 (1 standard drink = 0.6 oz pur e alcohol) Sex and Gender Information Value Date Recorded Sex Assigned at Not on file Gender Identity Not on file Sexual Orientation Not on file Plan of Treatment Health Maintenance Due Date Last Done Comments MEDICARE AWV 12 MONTHS 1945 HEPATITIS C SCREENING 12/11/1963 DTAP/TDAP/TD VACCINES (1 - Tdap) 1965 PNEUMOCOCCAL VACCINE 50+ (1 of 1 - PCV) 1996 ZOSTER VACCINE (1 of 2) 1996 Respiratory Syncytial Virus (RSV) Vaccine Pt: or over 60 yrs (1 - 1-dose 75+ series) 2021 COVID-19 VACCINE (2023-2 5 season) 2024 DEPRESSION SCREENING 06/10/2024 INFLUENZA VACCINE (Season Ended) 2025 HEPATITIS B VACCINE Aged Out No longe r eligible based on patient's age to complete this topic HIB VACCINE Aged Out No longer eligi ble based on patient's age to complete this topic HPV VACCINE Aged Out No longer eligi ble based on patient's age to complete this topic MENINGOCOCCAL (Group B) VACC INE SHARED DECISION-MAKING Aged Out No longer eligibl e based on patient's age to complete this topic MENINGOCOCCAL GROUPS A/C/Y/W VACCINE Aged Out No longer eligible b ased on patient's age to complete this topic Care Teams Lease Administrator Relationship Specialty Start Date End Date Anuj Cowart MD [address] [place] [address] PCP - General 04/12/10
[2024-09-16 10:00] LABS: CRP < 0.5 mg/dL (<1.0)
[2024-09-16 10:12] LABS: Erythrocyte Sedimentation Rate 17 mm/hr (0-20)
== END 2024-09-16 09:01 | disposition home or self-care (01) ==
PROVIDERS: PCP Family Medicine; Visit Provider Orthopaedic Surgery
DX: T84.84XA Pain due to internal orthopedic prosthetic devices, implants and grafts, initial encounter (principal); Z96.642 Presence of left artificial hip joint; Z96.649 Presence of unspecified artificial hip joint
CPT/HCPCS: 36415; 85652; 86140

== ENCOUNTER 2024-11-16 13:48 | Outpatient (CLI) | payer MEDICARE, SELFPAY ==
--- NOTE | ~2024-11-16 | XR_ITS ---
XR hip LT 2V w AP pelvis 11/16/2024 14:28 Indication: Pain of the left hip Procedure: AP pelvis and 3 views left hip Comparison: Comparison to multiple prior studies sequentially, with oldest reviewed study dated 08/2023. Findings: Pelvic rings intact. There are bilateral total hip arthroplasties. Prosthesis well seated b ilaterally. No acute fracture or traumatic malalignment. There is lower lumbar spondylosis. Prominent L5-S1 endplate osteophytes. Impression: 1: No acute abnormality of the left hip. Reviewed, dictated and finalized at location B. Impression: 1: No acute abnormality of the left hip.
--- OUTSIDE RECORDS SUMMARY | 2024-11-16 15:04 | XMS_ITS | Encounter Summary ---
Author Organization [facility] Address [address] [place] [address] Care Team Providers Care Practice Performance Manager Name Role Phone Joe Flannery MD Primary Care Provider [phone] Reason for Visit * Reason Onset Date Comments Test Results 11/12/2024 Encounter Details Date Type Department Care Team (Late st Contact Info) Description 11/12/[address] [facility] [address] [place] [address] Joe Flannery MD [address] [place] [address] Test Results Social History Tobacco Use Types Packs/Day Years Used Date Smoking Tobacco: Never Smokeless Tobacco: Never Alcohol Use Standard Drinks/Week Comments Yes 0 (1 standard drink = 0.6 oz pur e alcohol) occassionally [facility] Utilities Answer Date Recorded In the past 12 months has [employer], gas, oil, or water [employer] threatened to shut off services in your [...] points, staff should administer the PHQ-9) 0 10/27/2024 Hunger Vital Sign Answer Date Recorded Within [...] any time in the past 12 m [facility], were you homeless or living in a detention (including now)? No 08/13/2024 Sex and Gender Information Value Date Recorded Sex Assigned at Not on file Legal Sex Male 11:45 PM REGULATED PROGRAM MANAGER Gender Identity Not on file Sexual Orientation Not on file documented as of this encounter Miscellaneous Notes * Telephone Encounter - Britta William MA - 11/12/2024 4:30 PM CDT Attempted to contact pt. No answer. Lvm to return call to office. Upon returned call, please give below message. * Telephone Encounter - Britta William MA - 11/12/2024 12:46 PM CDT Can you please review xray results? Thanks * Telephone Encounter - Belén Hankins - 11/12/2024 12:16 PM CDT Test Result Request Type of test: Xray , right foot, left shoulder, right ribs Date of test: 10-27-24 Where was the test performed at?[facility] imiaging Did provider dictate result yet? No Additional Questions/Comments: n/a Does message need to be routed? Yes-Action Needed documented in this encounter Plan of Treatment Not on file documented as of this encounter Visit Diagnoses Not on filedocumented in this encounter Care Teams Practice Performance Manager Relationship Specialty Start Date End Date Joe Flannery MD [address] [place] [address] PCP - General Family Medicine 10/30/22 documented as of this encounter
--- OUTSIDE RECORDS SUMMARY | 2024-11-16 15:04 | XMS_ITS | Clinical Summary ---
Author Organization [facility] [address] Address [address] [place] [address] Care Team Providers Care Vehicle Refinisher Name Role Phone Joe Flannery MD Primary Care Provider [phone] Allergies Active Allergy Reactions Criticality Noted Date Comments Atorvastatin Nausea & Vomiting,Na usea And Vomiting Low 06/07/2013 Hydrocodone Unknown 06/25/2019 Renault goofy Renault goofy Oxycodone Unknown 02/05/2020 Medications GLUCOSAMINE/CHO NDRO COLVIN A/C/MN (GLUCOSAMINE-CH ONDROIT-VIT C-MN ORAL) Take 1,500 mg by mouth daily. Active ascorbic acid, vitamin C, (VITAMIN C) 500 mg capsule, extended release CR capsule Take 1 capsule (500 mg total) by mouth daily Active celvyubi41-uesy -Lmfolate-algal 27 mg iron-1.13 mg-581.92 mg capsule Take by mouth Active ketorolac (ACULAR) 0.5 % ophthalmic solution INSTILL 1 DROP INTO RIGHT EYE TWICE A DAY 3 Active losartan (COZAAR) 25 mg tablet TAKE 1 TABLET (25 MG TOTAL) BY MOUTH DAILY. 90 tablet 3 4 Active rOPINIRole (REQUIP) 0.25 mg tablet Take 1 tablet (0.25 mg total) by mouth nightly 30 tablet 1 5 Active Additional Information Patient not taking.Reported on 10/27/2024 tadalafiL (CIALIS) 20 mg tablet Take 1 tablet (20 mg total) by mouth daily as needed for erectile dysfunction 9 tablet 1 5 11/27/19 25 Active Active Problems Problem Noted Date Diagnosed Date Cerumen debris on tympanic membrane of left ear 10/27/2024 Assessment & Plan (10/27/2024 11:30 AM CDT): Encourage debrox and will follow response. Contusion of left shoulder 10/27/2024 Assessment & Plan (10/27/2024 11:31 AM CDT): TTP along the left anterior shoulder and left chest wall preborducible. Check imaging of the area. NO crepitus on palpation. Contusion of right foot 10/27/2024 Assessment & Plan (10/27/2024 11:31 AM CDT): Check imaging. Midfoot spurring and OA most likely noted. Skin cancer screening 10/27/2024 Assessment & Plan (10/27/2024 11:31 AM CDT): Referral to dermatology and will montior response. RLS (restless legs syndrome) 04/28/2024 Assessment & Plan (04/28/2024 9:06 AM PC TECHNICIAN): INtroduce therapy with ropinirole and will follow repsonse. MOntior response. Contusion of right thumb without damage to nail 04/28/2024 Assessment & Plan (04/28/2024 9:06 AM PC TECHNICIAN): Check imaging. Evidence of associated triggering of the fiinger. Hypertension, essential 04/28/2024 Assessment & Plan (10/27/2024 11:30 AM CDT): Continues on losartan 25mg daily basis and reviewed target blood pressure control and will monitor response. Assessment & Plan (04/28/2024 9:07 AM PC TECHNICIAN): Stable on lsoartan 25mg daily and will follow response. Medicare annual wellness visit, subsequent 04/28 Assessment & Plan (04/28/2024 9:07 AM PC TECHNICIAN): Focus of exam is prevnetative in nature. [...] 02/05/2020 Assessment & Plan (04/28/2024 9:05 AM PC TECHNICIAN): Upcoming joint replacement with Dr. Valdivia next month. Peripheral enthesopathy 02/05/2020 Primary localized osteoarthritis of pelvic regio n and thigh 02/05/2020 Radiotherapy follow-up 02/05/2020 Environmental and seasonal allergies 11/16/2019 Excessive daytime sleepiness 11/16/2019 NICOLASA on CPAP 11/16/2019 Assessment & Plan (04/28/2024 9:05 AM PC TECHNICIAN): Continues to benefit from nightly therapy. NO [...] 65%. The patient has ruled-out for acute RI and had false positive stress test. Etiology [...] 65%. The patient has ruled-out for acute RI and had false positive stress test. Etiology [...] Encounters Date Type Department Care Team Description 11/12/2024 Telephone [facility] [address] [address] Joe Flannery MD Test Results 10/27/2024 10:15 AM CDT Ancillary Procedure [facility] at [address] [address] Contusion of left shoulder, initial encounter 10/27/2024 9:45 AM CDT Ancillary Procedure [facility] at [address] [address] Contusion of left shoulder, initial encounter 10/27/2024 9:30 AM CDT Ancillary Procedure [facility] at [address] [address] Contusion of right foot, initial encounter 10/27/2024 8:45 AM CDT Office Visit [facility] at [address] [address] Joe Flannery MD Skin cancer screening (Primary Dx); Contusion of right foot, initial encounter; Contusion of left shoulder, initial encounter; Hypertension, essential; Cerumen debris on tympanic membrane of left ear 09/16/2024 Orders Only [facility] Health Information Management [address] [place], [place] [id number] Scanning, Provider from Last 3 Months Immunizations [...] = 0.6 oz pur e alcohol) occassionally [facility] Utilities Answer Date Recorded In the past [...] any time in the past 12 m [facility], were you homeless or living in a fdc (including now)? No 08/13/2024 Sex and Gender Information Value Date Recorded Sex Assigned at Not on file Legal Sex Male 11:45 PM PC TECHNICIAN Gender Identity Not on file Sexual Orientation Not on file Obstetrics History Last Filed Vital Signs Vital Sign Reading Time Taken Comments Blood Pressure 118/78 10/27/2024 8:49 AM CDT Pulse 57 10/27/2024 8:49 AM CDT Temperature 36.8 C (98.2 F) 10/27/2024 8:49 AM CDT Respiratory Rate 18 01/25/2022 9:09 AM CDT Oxygen Saturation 97% 10/27/2024 8:49 AM CDT Inhaled Oxygen Concentration - - Weight 95 kg (209 lb 6.4 oz) 10/27/2024 8:49 AM CDT Height 190.5 cm (6' 3) 10/27/2024 8:49 AM CDT Body Mass Index 26.17 10/27/2024 8:49 AM CDT Plan of Treatment Health Maintenance Due Date Last Done Comments Hepatitis B Screening 1963 Pneumococcal vaccine 65+ (1 of 1 - PCV) 1996 Influenza Vaccine (Season Ended) 2025 03/16/2019, 03/16/2019, 03/16/2019, Additional history exists Well Visit 65+ 04/28/2025 04/28/2024 Depression Screening 10/27/2025 10/27/2024, 04/28/2024, 03/03/2024, Additional history exists Fall Risk Assessment 10/27/2025 10/27/2024, 04/28/2024, 03/03/2024, Additional history exists DTaP/Tdap/Td Vaccine (2 - Td or Tdap) 08/01/2026 08/01/2016 Hepatitis C Screening Completed 09/08/2016 Zoster Vaccine Completed 10/28/2018, 07/07/2018 Procedures Procedure Name Priority Date/Time Associated Diagnosis Comments XR FOOT RIGHT 3 OR MORE VIEWS Schedule Routine, Read Routine (OP Routine) 10/27/2024 9:43 AM CDT Contusion of right foot, initial encounter XR SHOULDER LEFT 2 OR MORE VIEWS Schedule Routine, Read Routine (OP Routine) 10/27/2024 9:41 AM CDT Contusion of left shoulder, initial encounter XR RIBS BILATERAL 3 VIEWS Schedule Routine, Read Routine (OP Routine) 10/27/2024 9:41 AM CDT Contusion of left shoulder, initial encounter SCAN - LABS 09/16/2024 SCAN - RADIOLOGY/IMAGING 09/16/2024 from Last 3 Months Results * XR Foot Right 3+ Vw (10/27/2024 9:43 AM CDT) Anatomical Region Laterality Modality Lower Extremities, Foot Right Digital Radiography 10/27/2024 4:15 PM CDT Narrative 10/27/2024 4:21 PM CDT EXAM DESCRIPTION: XR RIBS BILATERAL 3 VIEWS; XR FOOT RIGHT 3 OR MORE VIEWS; XR SHOULDER LEFT 2 OR MORE VIEWS REASON FOR STUDY: contusion left chest wall Pt complains of anterior left sided chest pain while taking big breaths after doing yard work and falling 3-4 days ago. No surgery to heart, lungs, or chest. Non-smoker. Pt complains of left anterior shoulder pain since March after having rotator cuff surgery. ; contusion right foot Right dorsal foot pain for a few months. No prior surgery to the foot. No recent injury. ; contusion left shoulder Pt complains of anterior left sided chest pain while taking big breaths after doing yard work and falling 3-4 days ago. No surgery to heart, lungs, or chest. Non-smoker. Pt complains of left anterior shoulder pain since March after having rotator cuff surgery. TECHNIQUE: Three views right ribs. Three views left ribs. Four views left shoulder. Three views right foot. COMPARISON: No prior. FINDINGS: Right foot: Normal mineralization. No acute fracture or dislocation. Mild osteoarthritis 1st MTP joint. Prominent plantar calcaneal spur. Heterotopic ossification is seen along the expected plantar fascia. Left shoulder: Normal mineralization. No acute fracture or dislocation. Mild osteoarthritis glenohumeral joint. Moderate of the AC joint. Adjacent ribs and soft tissues are unremarkable. Right ribs: No acute fracture. No underlying pulmonary contusion, infiltrate or pneumothorax. Normal cardiomediastinal silhouette. Prominent multilevel degenerative endplate change thoracic spine at multiple levels. Severe osteoarthritis right glenohumeral joint and moderate of the AC joint. Free bodies. Prominent degenerative endplate change lumbar spine. Overall, moderate spondylosis of the thoracic and lumbar spine. Left ribs: No acute fracture. No underlying pulmonary contusion or pneumothorax. Mild cortical thickening lateral left 6th rib favoring sequela of old healed injury. IMPRESSION: No acute fracture of the right foot. Mild osteoarthritis 1st MTP joint. Prominent plantar calcaneal spur with heterotopic ossification along the expected plantar fascia. No acute fracture of the left shoulder. Mild osteoarthritis left glenohumeral joint and moderate of the AC joint. No acute right rib fracture. No acute left rib fracture. Cortical thickening of the lateral left 6th rib favors sequela of old injury and healing. Moderate spondylosis of the thoracic and lumbar spine where visualized. Severe osteoarthritis right glenohumeral joint with free bodies on more limited view. THIS IS AN ELECTRONICALLY VERIFIED FINAL REPORT 10/27/2024 4:21 PM - Electronically signed by Pepe APODACA T: Report ID: [id number] Reading Location: [id number] Procedure Note Pepe Early MD - 10/27/2024 EXAM DESCRIPTION: XR RIBS BILATERAL 3 VIEWS; XR FOOT RIGHT 3 OR MOREVIEWS; XR SHOULDER LEFT 2 OR MORE VIEWS REASON FOR STUDY: contusion left chest wall Pt complains of anterior left sided chest pain while taking big breathsafter doing yard work and falling 3-4 days ago. No surgery to heart, lungs, or chest. Non-smoker. Pt complains of left anterior shoulder pain sinceOctober after having rotator cuff surgery. ; contusion right foot Right dorsal foot pain for a few months. No prior surgery to the foot. No recent injury. ; contusion left shoulder Pt complains of anterior left sided chest pain while taking big breathsafter doing yard work and falling 3-4 days ago. No surgery to heart, lungs, or chest. Non-smoker. Pt complains of left anterior shoulder pain sinceOctober after having rotator cuff surgery. TECHNIQUE: Three views right ribs. Three views left ribs. Four views left shoulder. Three views right foot. COMPARISON: No prior. FINDINGS: Right foot: Normal mineralization. No acute fracture or dislocation. Mildosteoarthritis 1st MTP joint. Prominent plantar calcaneal spur. Heterotopicossification is seen along the expected plantar fascia. Left shoulder: Normal mineralization. No acute fracture or dislocation. Mildosteoarthritis glenohumeral joint. Moderate of the AC joint. Adjacent ribs and softtissues are unremarkable. Right ribs: No acute fracture. No underlying pulmonary contusion, infiltrate or pneumothorax. Normal cardiomediastinal silhouette. Prominent multilevel degenerative endplate change thoracic spine at multiple levels. Severe osteoarthritis right glenohumeral joint and moderate of the AC joint.Free bodies. Prominent degenerative endplate change lumbar spine. Overall, moderate spondylosis of the thoracic and lumbar spine. Left ribs: No acute fracture. No underlying pulmonary contusion or pneumothorax.Mild cortical thickening lateral left 6th rib favoring sequela of old healed injury. IMPRESSION: No acute fracture of the right foot. Mild osteoarthritis 1st MTP joint. Prominent plantar calcaneal spur with heterotopic ossification along the expected plantar fascia. No acute fracture of the left shoulder. Mild osteoarthritis left glenohumeral joint and moderate of the ACjoint. No acute right rib fracture. No acute left rib fracture. Cortical thickening of the lateral left 6th rib favors sequela of oldinjury and healing. Moderate spondylosis of the thoracic and lumbar spine where visualized. Severe osteoarthritis right glenohumeral joint with free bodies on more limited view. THIS IS AN ELECTRONICALLY VERIFIED FINAL REPORT 10/27/2024 4:21 PM - Electronically signed by Pepe APODACA T: Report ID: [id number] Reading Location: [id number] us Joe Flannery MD IMG XR PROCEDURES Final R esult * XR Shoulder Left 2+ Vw (10/27/2024 9:41 AM CDT) Anatomical Region Laterality Modality Upper Extremities, Shoulder Left Digi jessica Radiography 10/27/2024 4:15 PM CDT Narrative 10/27/2024 4:21 PM CDT EXAM DESCRIPTION: XR RIBS BILATERAL 3 VIEWS; XR FOOT RIGHT 3 OR MORE VIEWS; XR SHOULDER LEFT 2 OR MORE VIEWS REASON FOR STUDY: contusion left chest wall Pt complains of anterior left sided chest pain while taking big breaths after doing yard work and falling 3-4 days ago. No surgery to heart, lungs, or chest. Non-smoker. Pt complains of left anterior shoulder pain since March after having rotator cuff surgery. ; contusion right foot Right dorsal foot pain for a few months. No prior surgery to the foot. No recent injury. ; contusion left shoulder Pt complains of anterior left sided chest pain while taking big breaths after doing yard work and falling 3-4 days ago. No surgery to heart, lungs, or chest. Non-smoker. Pt complains of left anterior shoulder pain since March after having rotator cuff surgery. TECHNIQUE: Three views right ribs. Three views left ribs. Four views left shoulder. Three views right foot. COMPARISON: No prior. FINDINGS: Right foot: Normal mineralization. No acute fracture or dislocation. Mild osteoarthritis 1st MTP joint. Prominent plantar calcaneal spur. Heterotopic ossification is seen along the expected plantar fascia. Left shoulder: Normal mineralization. No acute fracture or dislocation. Mild osteoarthritis glenohumeral joint. Moderate of the AC joint. Adjacent ribs and soft tissues are unremarkable. Right ribs: No acute fracture. No underlying pulmonary contusion, infiltrate or pneumothorax. Normal cardiomediastinal silhouette. Prominent multilevel degenerative endplate change thoracic spine at multiple levels. Severe osteoarthritis right glenohumeral joint and moderate of the AC joint. Free bodies. Prominent degenerative endplate change lumbar spine. Overall, moderate spondylosis of the thoracic and lumbar spine. Left ribs: No acute fracture. No underlying pulmonary contusion or pneumothorax. Mild cortical thickening lateral left 6th rib favoring sequela of old healed injury. IMPRESSION: No acute fracture of the right foot. Mild osteoarthritis 1st MTP joint. Prominent plantar calcaneal spur with heterotopic ossification along the expected plantar fascia. No acute fracture of the left shoulder. Mild osteoarthritis left glenohumeral joint and moderate of the AC joint. No acute right rib fracture. No acute left rib fracture. Cortical thickening of the lateral left 6th rib favors sequela of old injury and healing. Moderate spondylosis of the thoracic and lumbar spine where visualized. Severe osteoarthritis right glenohumeral joint with free bodies on more limited view. THIS IS AN ELECTRONICALLY VERIFIED FINAL REPORT 10/27/2024 4:21 PM - Electronically signed by Pepe APODACA T: Report ID: [id number] Reading Location: [place] [id number] Procedure Note Pepe Early MD - 10/27/2024 EXAM DESCRIPTION: XR RIBS BILATERAL 3 VIEWS; XR FOOT RIGHT 3 OR MOREVIEWS; XR SHOULDER LEFT 2 OR MORE VIEWS REASON FOR STUDY: contusion left chest wall Pt complains of anterior left sided chest pain while taking big breathsafter doing yard work and falling 3-4 days ago. No surgery to heart, lungs, or chest. Non-smoker. Pt complains of left anterior shoulder pain sinceOctober after having rotator cuff surgery. ; contusion right foot Right dorsal foot pain for a few months. No prior surgery to the foot. No recent injury. ; contusion left shoulder Pt complains of anterior left sided chest pain while taking big breathsafter doing yard work and falling 3-4 days ago. No surgery to heart, lungs, or chest. Non-smoker. Pt complains of left anterior shoulder pain sinceOctober after having rotator cuff surgery. TECHNIQUE: Three views right ribs. Three views left ribs. Four views left shoulder. Three views right foot. COMPARISON: No prior. FINDINGS: Right foot: Normal mineralization. No acute fracture or dislocation. Mildosteoarthritis 1st MTP joint. Prominent plantar calcaneal spur. Heterotopicossification is seen along the expected plantar fascia. Left shoulder: Normal mineralization. No acute fracture or dislocation. Mildosteoarthritis glenohumeral joint. Moderate of the AC joint. Adjacent ribs and softtissues are unremarkable. Right ribs: No acute fracture. No underlying pulmonary contusion, infiltrate or pneumothorax. Normal cardiomediastinal silhouette. Prominent multilevel degenerative endplate change thoracic spine at multiple levels. Severe osteoarthritis right glenohumeral joint and moderate of the AC joint.Free bodies. Prominent degenerative endplate change lumbar spine. Overall, moderate spondylosis of the thoracic and lumbar spine. Left ribs: No acute fracture. No underlying pulmonary contusion or pneumothorax.Mild cortical thickening lateral left 6th rib favoring sequela of old healed injury. IMPRESSION: No acute fracture of the right foot. Mild osteoarthritis 1st MTP joint. Prominent plantar calcaneal spur with heterotopic ossification along the expected plantar fascia. No acute fracture of the left shoulder. Mild osteoarthritis left glenohumeral joint and moderate of the ACjoint. No acute right rib fracture. No acute left rib fracture. Cortical thickening of the lateral left 6th rib favors sequela of oldinjury and healing. Moderate spondylosis of the thoracic and lumbar spine where visualized. Severe osteoarthritis right glenohumeral joint with free bodies on more limited view. THIS IS AN ELECTRONICALLY VERIFIED FINAL REPORT 10/27/2024 4:21 PM - Electronically signed by Pepe APODACA T: Report ID: [id number] Reading Location: [place] [address] us Joe Flannery MD IMG XR PROCEDURES Final R esult * XR Ribs Bilateral 3 Vw (10/27/2024 9:41 AM CDT) Anatomical Region Laterality Modality Rib, Chest Bilateral Digital Radiogra phy 10/27/2024 4:15 PM CDT Narrative 10/27/2024 4:21 PM CDT EXAM DESCRIPTION: XR RIBS BILATERAL 3 VIEWS; XR FOOT RIGHT 3 OR MORE VIEWS; XR SHOULDER LEFT 2 OR MORE VIEWS REASON FOR STUDY: contusion left chest wall Pt complains of anterior left sided chest pain while taking big breaths after doing yard work and falling 3-4 days ago. No surgery to heart, lungs, or chest. Non-smoker. Pt complains of left anterior shoulder pain since March after having rotator cuff surgery. ; contusion right foot Right dorsal foot pain for a few months. No prior surgery to the foot. No recent injury. ; contusion left shoulder Pt complains of anterior left sided chest pain while taking big breaths after doing yard work and falling 3-4 days ago. No surgery to heart, lungs, or chest. Non-smoker. Pt complains of left anterior shoulder pain since March after having rotator cuff surgery. TECHNIQUE: Three views right ribs. Three views left ribs. Four views left shoulder. Three views right foot. COMPARISON: No prior. FINDINGS: Right foot: Normal mineralization. No acute fracture or dislocation. Mild osteoarthritis 1st MTP joint. Prominent plantar calcaneal spur. Heterotopic ossification is seen along the expected plantar fascia. Left shoulder: Normal mineralization. No acute fracture or dislocation. Mild osteoarthritis glenohumeral joint. Moderate of the AC joint. Adjacent ribs and soft tissues are unremarkable. Right ribs: No acute fracture. No underlying pulmonary contusion, infiltrate or pneumothorax. Normal cardiomediastinal silhouette. Prominent multilevel degenerative endplate change thoracic spine at multiple levels. Severe osteoarthritis right glenohumeral joint and moderate of the AC joint. Free bodies. Prominent degenerative endplate change lumbar spine. Overall, moderate spondylosis of the thoracic and lumbar spine. Left ribs: No acute fracture. No underlying pulmonary contusion or pneumothorax. Mild cortical thickening lateral left 6th rib favoring sequela of old healed injury. IMPRESSION: No acute fracture of the right foot. Mild osteoarthritis 1st MTP joint. Prominent plantar calcaneal spur with heterotopic ossification along the expected plantar fascia. No acute fracture of the left shoulder. Mild osteoarthritis left glenohumeral joint and moderate of the AC joint. No acute right rib fracture. No acute left rib fracture. Cortical thickening of the lateral left 6th rib favors sequela of old injury and healing. Moderate spondylosis of the thoracic and lumbar spine where visualized. Severe osteoarthritis right glenohumeral joint with free bodies on more limited view. THIS IS AN ELECTRONICALLY VERIFIED FINAL REPORT 10/27/2024 4:21 PM - Electronically signed by Pepe APODACA T: Report ID: [id number] Reading Location: [id number] Procedure Note Pepe Early MD - 10/27/2024 EXAM DESCRIPTION: XR RIBS BILATERAL 3 VIEWS; XR FOOT RIGHT 3 OR MOREVIEWS; XR SHOULDER LEFT 2 OR MORE VIEWS REASON FOR STUDY: contusion left chest wall Pt complains of anterior left sided chest pain while taking big breathsafter doing yard work and falling 3-4 days ago. No surgery to heart, lungs, or chest. Non-smoker. Pt complains of left anterior shoulder pain sinceOctober after having rotator cuff surgery. ; contusion right foot Right dorsal foot pain for a few months. No prior surgery to the foot. No recent injury. ; contusion left shoulder Pt complains of anterior left sided chest pain while taking big breathsafter doing yard work and falling 3-4 days ago. No surgery to heart, lungs, or chest. Non-smoker. Pt complains of left anterior shoulder pain sinceOctober after having rotator cuff surgery. TECHNIQUE: Three views right ribs. Three views left ribs. Four views left shoulder. Three views right foot. COMPARISON: No prior. FINDINGS: Right foot: Normal mineralization. No acute fracture or dislocation. Mildosteoarthritis 1st MTP joint. Prominent plantar calcaneal spur. Heterotopicossification is seen along the expected plantar fascia. Left shoulder: Normal mineralization. No acute fracture or dislocation. Mildosteoarthritis glenohumeral joint. Moderate of the AC joint. Adjacent ribs and softtissues are unremarkable. Right ribs: No acute fracture. No underlying pulmonary contusion, infiltrate or pneumothorax. Normal cardiomediastinal silhouette. Prominent multilevel degenerative endplate change thoracic spine at multiple levels. Severe osteoarthritis right glenohumeral joint and moderate of the AC joint.Free bodies. Prominent degenerative endplate change lumbar spine. Overall, moderate spondylosis of the thoracic and lumbar spine. Left ribs: No acute fracture. No underlying pulmonary contusion or pneumothorax.Mild cortical thickening lateral left 6th rib favoring sequela of old healed injury. IMPRESSION: No acute fracture of the right foot. Mild osteoarthritis 1st MTP joint. Prominent plantar calcaneal spur with heterotopic ossification along the expected plantar fascia. No acute fracture of the left shoulder. Mild osteoarthritis left glenohumeral joint and moderate of the ACjoint. No acute right rib fracture. No acute left rib fracture. Cortical thickening of the lateral left 6th rib favors sequela of oldinjury and healing. Moderate spondylosis of the thoracic and lumbar spine where visualized. Severe osteoarthritis right glenohumeral joint with free bodies on more limited view. THIS IS AN ELECTRONICALLY VERIFIED FINAL REPORT 10/27/2024 4:21 PM - Electronically signed by Pepe Early M.D. [facility] T: Report ID: [id number] Reading Location: [place] [address] us Joe Flannery MD IMG XR PROCEDURES Final R esult * SCAN - RADIOLOGY/IMAGING (09/16/2024) Anatomical Region Laterality Modality Other us Provider Scanning Final Result * SCAN - LABS (09/16/2024) us Provider Scanning Final Result from Last 3 Months Insurance AETNA MEDICARE GOLD TNA MEDICARE [facility] AET MEDICARE [facility] Care Teams Vehicle Refinisher Relationship Specialty Start Date End Date [place] [address] PCP - General Family Medicine 10/30/22
--- OUTSIDE RECORDS SUMMARY | 2024-11-16 15:04 | XMS_ITS | Clinical Summary ---
Author Organization [facility] Address [address] [place] [phone] Phone Care Team Providers Care Sales Department Manager Name Role Phone Anuj Cowart MD Primary Care Provider [phone] Allergies Active Allergy Reactions Criticality Noted Date Comments Atorvastatin Nausea and Vomiting Low 06/07/2013 Hydrocodone Unknown 06/25/2019 [place] [facility] [place] [facility] [facility] Medications simvastatin (ZOCOR) 20 mg tablet [...] Take 2 Tabs by mouth daily. Active afyaoedq56-jqpz-M mfolate-algal 27 mg iron-1.13 mg-581.92 mg Capsule Take by mouth. Active ketorolac tromethamine (ACULAR) 0.5 % solution INSTILL 1 DROP INTO RIGHT EYE TWICE A DAY 3 Active Active Problems Patient Care Coordination No te Formatting of this note migh t be different from the original. Shank Sander - Dr. Chilango Perez Problem Noted Date [...] 65%. The patient has ruled-out for acute [place] and had false positive stress test. 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 Gender Identity Not on file Sexual Orientation Not on file Last Filed Vital Signs Vital Sign Reading Time Taken Comments Blood Pressure 156/70 11/14/2023 9:46 AM CDT Pulse 68 11/14/2023 9:46 AM CDT Temperature 36.6 C (97.9 F) 11/14/2023 9:46 AM CDT Respiratory Rate 16 11/14/2023 9:46 AM CDT Oxygen Saturation 98% 06/08/2013 2:30 PM QUALITY CONTROL INSPECTOR HEADING Inhaled Oxygen Concentration - - Weight 96.4 kg (212 lb 8 oz) 11/14/2023 9:46 AM CDT Height 190.5 cm (6' 3) 11/14/2023 9:46 AM CDT Body Mass Index [...] 08/01/2016 ZOSTER VACCINE Completed 10/28/2018, 07/07/2018 Insurance AETNA O MCR Advance Directives For more information, please contact: [phone] * Full Code (Latest Code Status on File) Date Activated Date Inactivated Comments 06/07/2013 12:21 AM 06/08/2013 6:35 PM Care Teams Sales Department Manager Relationship Specialty Start Date End Date Anuj Cowart MD [address] [place] [address] PCP - General Family Practice 06/18/13
--- OUTSIDE RECORDS SUMMARY | 2024-11-16 15:04 | XMS_ITS | Referral Summary ---
Author Organization [facility] [address] [place] [address] [address] [place] [address] Care Team Providers Care Screen Examiner Name Role Phone Joe Flannery MD Primary Care Provider [phone] Encounters Date Type Department Care Team Description 11/12/2024 Telephone [facility] [address] [address] Joe Flannery MD Test Results 10/27/2024 10:15 AM CDT Ancillary Procedure [facility] Imaging at [address] [phone] Contusion of left shoulder, initial encounter 10/27/2024 9:45 AM CDT Ancillary Procedure [facility] Imaging at [address] [address] Contusion of left shoulder, initial encounter 10/27/2024 9:30 AM CDT Ancillary Procedure [facility] Imaging at [address] [address] Contusion of right foot, initial encounter 10/27/2024 8:45 AM CDT Office Visit [facility] Primary Care at [address] [phone] Joe Flannery MD Skin cancer screening (Primary Dx); Contusion of right foot, initial encounter; Contusion of left shoulder, initial encounter; Hypertension, essential; Cerumen debris on tympanic membrane of left ear 09/16/2024 Orders Only [facility] Health Information Management [address] [place] [address] Scanning, Provider from Last 3 Months Allergies Active Allergy Reactions Criticality Noted Date Comments Atorvastatin Nausea & Vomiting,Na usea And Vomiting Low 06/07/2013 Hydrocodone Unknown 06/25/2019 Ocate goofy Ocate goofy Oxycodone Unknown 02/05/2020 Medications GLUCOSAMINE/CHO NDRO COLVIN A/C/MN (GLUCOSAMINE-CH ONDROIT-VIT C-MN ORAL) Take 1,500 mg by mouth daily. Active ascorbic acid, vitamin C, (VITAMIN C) 500 mg capsule, extended release CR capsule Take 1 capsule (500 mg total) by mouth daily Active [id number]-npul -Lmfolate-algal 27 mg iron-1.13 mg-581.92 mg capsule [...] 04/28/2024 Assessment & Plan (04/28/2024 9:06 AM RISK MGR): INtroduce therapy with ropinirole and will follow repsonse. MOntior response. Contusion of right thumb without damage to nail 04/28/2024 Assessment & Plan (04/28/2024 9:06 AM RISK MGR): Check imaging. Evidence of associated triggering of the fiinger. Hypertension, essential 04/28/2024 Assessment & Plan (10/27/2024 11:30 AM CDT): Continues on losartan 25mg daily basis and reviewed target blood pressure control and will monitor response. Assessment & Plan (04/28/2024 9:07 AM RISK MGR): Stable on lsoartan 25mg daily and will follow response. Medicare annual wellness visit, subsequent 04/28 Assessment & Plan (04/28/2024 9:07 AM RISK MGR): Focus of exam is prevnetative in nature. [...] 02/05/2020 Assessment & Plan (04/28/2024 9:05 AM RISK MGR): Upcoming joint replacement with Dr. Valdivia next month. Peripheral enthesopathy 02/05/2020 Primary localized osteoarthritis of pelvic regio n and thigh 02/05/2020 Radiotherapy follow-up 02/05/2020 Environmental and seasonal allergies 11/16/2019 Excessive daytime sleepiness 11/16/2019 NICOLASA on CPAP 11/16/2019 Assessment & Plan (04/28/2024 9:05 AM RISK MGR): Continues to benefit from nightly therapy. NO [...] = 0.6 oz pur e alcohol) occassionally [employer] Util[employer] Answer Date Recorded In the past 12 months has [employer], gas, oil, or water [employer] threatened to shut off services in your [...] any time in the past 12 m [facility], were you homeless or living in a intermediate (including now)? No 08/13/2024 Sex and Gender Information Value Date Recorded Sex Assigned at Not on file Legal Sex Male 11:45 PM RISK MGR Gender Identity Not on file Sexual Orientation [...] 10/27/2024 8:49 AM CDT Plan of Treatment Not on file Procedures [...] signed by Pepe APODACA T: Report ID: [id number] Reading Location: [id number] Procedure Note Pepe Early MD - 10/27/2024 [...] signed by Pepe APODACA T: Report ID: [id number] Reading Location: [id number] us Joe Flannery MD IMG XR PROCEDURES [...] 10/27/2024 4:21 PM - Electronically signed by Ppee Early M.D. MJ T: Report ID: [id number] Reading Location: [id number] Procedure Note Pepe Early MD - 10/27/2024 [...] Pepe Early M.D. MJ T: Report ID: [id number] Reading Location: [id number] us Joe Flannery MD IMG XR PROCEDURES [...] signed by Pepe APODACA T: Report ID: [id number] Reading Location: [id number] Procedure Note Pepe Early MD - 10/27/2024 [...] signed by Pepe APODACA T: Report ID: [id number] Reading Location: [id number] us Joe Flannery MD IMG XR PROCEDURES Final R esult * SCAN - RADIOLOGY/IMAGING (09/16/2024) Anatomical Region Laterality Modality Other us Provider Scanning Final Result * SCAN - LABS (09/16/2024) Provider Scanning Final Result from Last 3 Months Insurance AETNA MEDICARE GOLD AETNA MEDICARE GOLD AETNA MEDICARE GOLD Care Teams Screen Examiner Relationship Specialty Start Date End Date Joe Flannery MD [address] [place] [address] PCP - General Family Medicine 10/30/22
--- OUTSIDE RECORDS SUMMARY | 2024-11-16 15:04 | XMS_ITS | Clinical Summary ---
Author Organization [facility] Address [facility] [facility] [place] [address] Care Team Providers Care Veneer Lathe Operator Name Role Phone Anuj Cowart MD Primary Care Provider Source Comments [facility],non-[facility] Affiliates and Associated Physician Practices is amultiple site organization consisting of ambulatory clinics and hospital sitesin [place], [place], [place] and [place]. This disclosure is being madepursuant to the Care Everywhere program and may not contain all information available regarding this patient. 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
--- OUTSIDE RECORDS SUMMARY | 2024-11-16 15:04 | XMS_ITS | Encounter Summary ---
Author Organization [facility] Address [address] [place] [address] Care Team Providers Care Senior Reservations Agent Name Role Phone Anuj Cowart MD Primary Care Provider [phone] Encounter Details Date Type Department Care Team (Late st Contact Info) Description 12/20/2022 Lab Requisition [facility] - DermPath Lab [address] [facility] [place] [phone] Sonny Torres MD [address] [facility] [place] [address] Social History Tobacco Use Types Packs/Day Years Used Date Smoking Tobacco: Never Smokeless Tobacco: Never Alcohol Use Standard Drinks/Week Comments Yes 0 (1 standard drink = 0.6 oz pur e alcohol) Sex and Gender Information Value Date Recorded Sex Assigned at Not on file 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 Gender Identity Not on file Sexual Orientation Not on file documented as of this encounter Plan of Treatment Not on file documented as of this encounter Procedures Procedure Name Priority Date/Time Associated Diagnosis Comments DERMATOPATHOLOGY Routine 12/18/2022 12:0 0 AM CDT documented in this encounter Results * DERMATOPATHOLOGY (12/18/2022 12:00 AM CDT) Case Report Dermatopathology Report Case: [id number] Authorizing Provider: Sonny Torres MD Collected: 12/18/2022 12:00 AM Ordering Location: [facility] DermPath Lab Received: 12/20/2022 07:20 AM Pathologist: Myra Arellano MD Specimen: Skin, left chest 3:20 PM CDT DERMATOPATHOLOGY LABORATORY Final Diagnosis Specimen A. 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 Aron Mcleod. These tests need not be, and therefore are not, approved by the [place] Food and Drug Administration. The tests are used for clinical purposes. Billing Codes Specimen Charges Stain Charges [address] 1 3 3:20 PM CDT DERMATOPATHOLOGY LABORATORY Embedded Images 3 3:20 PM CDT DERMATOPATHOLOGY LABORATORY Pathology/Cytolog y TISSUE SPECIMEN FROM SKIN / Unknown 12/18/2022 12/20/2022 7:20 AM CDT us Sonny Torres MD LAB - PATHOLOGY/CYTOLOGY ORDER JORDAN Final Result DERMATOPATHOLOGY LABORATORY [facility] - Department of Dermatology [address] [phone] documented in this encounter Visit Diagnoses Not on filedocumented in this encounter Care Teams Senior Reservations Agent Relationship Specialty Start Date End Date Anuj Cowart MD [address] [place] [address] PCP - General 04/12/10 documented as of this encounter
== END 2024-11-16 13:49 | disposition home or self-care (01) ==
PROVIDERS: PCP Family Medicine; Visit Provider Orthopaedic Surgery
DX: T84.84XA Pain due to internal orthopedic prosthetic devices, implants and grafts, initial encounter (principal); Z96.649 Presence of unspecified artificial hip joint
CPT/HCPCS: 73502